=== PATIENT | female | born 1945 | race Caucasian/White ===

== ENCOUNTER → 2016-12-08 09:59 | Outpatient (CLI) | payer MEDICARE, OTHER ==
[~2016-12-08 09:59] MED LIST: ASPIRIN325 MG PO; AVAPRO150 MG PO; BAYER CHEWABLE81 MG PO; COREG 3.1253.125 MG PO; EFFEXOR75 MG PO; HYDRALAZINE HCL10 MG PO; LASIX20 MG; LASIX20 MG PO; LEVOTHROID88 MCG PO; LIBRAX CAPSULE1 CAP PO; MECLIZINE HCL25 MG PO; MUCINEX600 MG PO; PLAVIX75 MG PO; PRAVASTATIN SOD10 MG PO; PROAIR HFA8.5 GM INH; SYNTHROID75 MCG PO; TOPROL XL50 MG PO; VITAMIN D31000 UNIT PO; ZANTAC150 MG PO
== END | disposition home or self-care (01) ==
LOC: D.US 12-07 15:00
DX: I65.23 Occlusion and stenosis of bilateral carotid arteries (principal)

== ENCOUNTER → 2016-12-09 10:01 | Outpatient (CLI) | payer MEDICARE, OTHER | END | disposition home or self-care (01) | LOC: D.CT 10:01 | DX: I65.23 Occlusion and stenosis of bilateral carotid arteries (principal) ==

== ENCOUNTER 2016-12-25 10:34 | Outpatient (CLI) | payer MEDICARE, OTHER ==
[~2016-12-25] VITALS: Ht 170.2 cm; Wt 51.0 kg
--- NOTE | ~2016-12-25 | HEMODYNAMI ---
PATIENT:SANTHOSH NATARAJAN MEDICAL RECORD: [id number] : 41 LOCATION:[facility] ADMISSION DATE: 12/25/16 Generatedon:12/25/201615:23 Patient name: SANTHOSH NATARAJAN Patient #: [id number] SSN: D OB: 1945 Date of study: 12/25/2016 Page: Of Hemodynamic Procedure Report Patient Data Patient Demographics Procedure consent was obtained First Name: SANTHOSH Gender: Female Last Name: ROSA ISELA : 1945 [facility] Initial: B Age: 71 year(s) Patient #: [id number] Race: Unknown Additional ID: [id number] Contact details [address]: [address] [place] [address] State: [place] City: [place] Zip code: [address] Past Medical History Allergies Allergen Reaction Date Comments Reported Statins 06/07/2015 Morphine 06/07/2015 Penicillins 12/25/2016 Sulfa drugs 12/25/2016 Other allergy 12/25/2016 Zetia Admission Admission Data Admission Date: 12/25/2016 Admission Time: 10:34 Lab Results Lab Result Date: 12/25/2016 Lab Result Time: 0:00 Biochemistry Name Units Result Min Max Creatinine mg/dl 0.8 --(-*--)-- 0.6 1.3 CBC Name Units Result Min Max Hemoglobin g/dl 15.6 --(--*-)-- 13.5 17.5 Procedure Procedure Types Cath Procedure Diagnostic Procedure C [facility] w/Coronaries PCI Procedure Coronary Stent Initial x2 Miscellaneous Procedures Moderate Sedation up to 45 minutes Peripheral Cath Diagnostic Procedure Cath Peripheral Nmwri-Doklahl-Svd-Off Four Vessel Arteriogram Procedure Description Procedure Date Procedure Date: 12/25/2016 Procedure Start Time: 14:29 Procedure End Time: 15:19 Procedure Staff Name Function Juice Chaudhry MD Performing Physician Bhavik Sandoval RT Scrub Natalie Moncada RN Nurse Brooke Jj RT Monitor Procedure Data Cath Procedure Fluoroscopy Diagnostic fluoroscopy Total fluoroscopy Time: time: 17.6 min 17.6 min Diagnostic fluoroscopy Total fluoroscopy dose: dose: 1182 mGy 1182 mGy Contrast Material Contrast Material Type Amount (ml) Isovue 300 287 Entry Location Entry Primary Successful Side Size Upsize Upsize Entry Closure Succes sful Closure Location (Fr) 1 (Fr) 2 (Fr) Remarks Device Remarks Femoral Right 5 Fr 6 Fr Vascade artery Short Closure System Estimated blood loss: 10 ml Diagnostic catheters Device Type Used For End Catheter Placement Cordis 5Fr Pigtail LV Angiography Catheter (MP) Cordis 5Fr Pigtail Abdominal Catheter (MP) aortogram with runoff Cordis 5Fr JL 4.0 Left Coronary Catheter (MP) Angiography Cordis 5Fr 3DRC Catheter Right Coronary (MP) Angiography Cordis 5Fr 3DRC Catheter Cervical carotid (MP) (common) arteriography Cordis 4Fr JB3 catheter Cervical carotid (common) arteriography Procedure Complications No complications Procedure Medications Medication Administration Route Dosage Oxygen NC 2 l/min Lidocaine 2% added to field 20 Heparin Flush Bag added to field 2 bags (1000units/500ml NS) 0.9% NaCl I.V. 100 ml/hr Benadryl I.V. 25 mg Versed I.V. 0.5 mg Fentanyl I.V. 25 mcg Versed I.V. 1 mg Fentanyl I.V. 50 mcg Heparin Bolus I.V. 5000 units Versed I.V. 1 mg Fentanyl I.V. 50 mcg Heparin Flush Bag added to field 1 bags (1000units/500ml NS) Versed I.V. 0.5 mg Fentanyl I.V. 25 mcg Hemodynamics Rest HGB: 15.6 (g/dl) Heart Rate: 84 (bpm) Snapshots Pre Cath Intra NCS Post Cath Vital Signs Time Heart Resp SPO2 etCO2 DM6nrdn NIBP (mmHg) Rhythm Pain Sedatio n Rate (ipm) (%) (mmHg) (mmHg) Status Level (bpm) 14:08:17 90 17 97 0 0 Measuring NSR 0 (11) 10(A) , No pain 14:09:41 88 20 96 0 0 Time NSR 0 (11) 10(A) Exceeded , No pain 14:12:37 87 22 99 0 0 235/117(187) NSR 0 (11) 10(A) , No pain 14:17:14 86 18 96 0 0 215/102(154) NSR 0 (11) 10(A) , No pain 14:21:44 84 21 97 0 0 201/94(148) NSR 0 (11) 10(A) , No pain 14:26:12 85 17 96 0 0 183/86(123) NSR 0 (11) 9(A) , No pain 14:30:37 84 16 95 0 0 189/80(139) NSR 0 (11) 9(A) , No pain 14:35:05 84 16 98 0 0 168/72(111) NSR 0 (11) 9(A) , No pain 14:39:27 86 16 95 0 0 153/68(104) NSR 0 (11) 9(A) , No pain 14:43:43 84 28 95 0 0 154/70(106) NSR 0 (11) 9(A) , No pain 14:47:59 86 19 97 0 0 144/73(95) NSR 0 (11) 9(A) , No pain 14:52:13 84 15 97 0 0 162/65(115) NSR 0 (11) 9(A) , No pain 14:56:35 81 16 95 0 0 152/61(103) NSR 0 (11) 9(A) , No pain 15:00:53 81 16 96 0 0 134/60(93) NSR 0 (11) 9(A) , No pain 15:05:08 81 15 97 0 0 137/55(91) NSR 0 (11) 9(A) , No pain 15:09:21 83 15 96 0 0 143/60(95) NSR 0 (11) 9(A) , No pain 15:13:37 80 16 95 0 0 144/61(96) NSR 0 (11) 10(A) , No pain 15:17:56 77 17 96 0 0 121/56(82) NSR 0 (11) 10(A) , No pain Medications Time Medication Route Dose Verified Delivered Reason Notes Effectiveness by by 14:07:58 Oxygen NC 2 Juice Estrada used for l/min Isidoro Moncada garment worker 14:12:23 Lidocaine 2% added 20ml Juice Bose for local to vial Isidoro Chaudhry MD anesthetic field 14:12:27 Heparin Flush added 2 Juice Bose used for Bag to bags Isidoro Chaudhry MD procedure (1000units/500ml field NS) 14:12:37 0.9% NaCl I.V. 100 Juice Buffie Per physician ml/hr Isidoro Moncada RN 14:19:57 Benadryl I.V. 25 mg Juice Buffie used for pt has Isidoro Moncada RN procedure restless legs worse with benadryl 14:22:37 Versed I.V. 0.5 Juice Buffie for sedation mg Isidoro Moncada RN 14:22:43 Fentanyl I.V. 25 Juice Buffie for sedation mcg Isidoro Moncada RN 14:27:53 Versed I.V. 1 mg Juice Buffie for sedation Isidoro Moncada RN 14:27:58 Fentanyl I.V. 50 Juice Buffie for sedation mcg Isidoro Moncada RN 14:44:01 Heparin Bolus I.V. 5000 Juice Buffie for VERIFI ED units Isidoro Moncada RN anticoagulation WITH DR CHAUDHRY 14:56:30 Versed I.V. 1 mg Juice Buffie for sedation Isidoro Moncada RN 14:56:34 Fentanyl I.V. 50 Juice Buffie for sedation mcg Isidoro Moncada RN 15:00:29 Heparin Flush added 1 Juice Buffie used for Bag to bags Isidoro Moncada RN procedure (1000units/500ml field NS) 15:05:55 Versed I.V. 0.5 Juice Buffie for sedation mg Isidoro Moncada RN 15:06:00 Fentanyl I.V. 25 Juice Buffie for sedation mcg Isidoro Moncada RN Procedure Log Time Note 13:57:44 Bhavik Sandoval RT(R) sent for patient. Start room use. 13:57:45 Time tracking: Regular hours 13:57:48 Plan of Care:Hemodynamics will remain stable., Cardiac rhythm will remain stable., Comfort level will be maintained., Respiratory function will remain adequate., Patient/ family verbilizes understanding of procedure., Procedure tolerated without complication., Recovers from procedure without complications.. 14:03:27 Patient received from Pre/Post Procedure Room to CCL 1 Alert and oriented. Tansferred to table in Supine position. 14:03:28 Warm blankets applied, and jesus manuel hugger turned on for patient comfort. 14:03:28 Correct patient and procedure confirmed by team. 14:03:30 Signed procedure consent form obtained from patient. 14:03:30 ECG and BP/O2 sat monitors applied to patient. 14:03:32 Full Disclosure recording started 14:06:28 Vital chart was started 14:07:58 Oxygen 2 l/min NC was given by Natalie Moncada RN; used for procedure; 14:11:24 Rhythm: sinus rhythm 14:11:34 H&P Date Dictated: 12/23/2016 Within 30 days and on chart., H&P Addendum completed by physician on day of procedure. (MUST COMPLETE FOR ALL OUTPATIENTS). 14:11:35 Pre-procedure instructions explained to patient. 14:11:35 Pre-op teaching completed and patient verbalized understanding. 14:11:37 Family in waiting room. 14:11:38 Patient NPO since Midnight. 14:12:03 Patient allergic to Penicillins 14:12:20 Patient allergic to Sulfa drugs 14:12:23 Lidocaine 2% 20ml vial added to field was given by Juice Chaudhry MD; for local anesthetic; 14:12:27 Heparin Flush Bag (1000units/500ml NS) 2 bags added to field was given by Juice Chaudhry MD; used for procedure; 14:12:31 Patient allergic to Other allergyZetia 14:12:37 0.9% NaCl 100 ml/hr I.V. was given by Natalie Moncada RN; Per physician; 14:12:38 Is the patient allergic to Iodine/contrast media? No. 14:12:48 Is patient on blood thinner?Yes 14:12:50 ACC The patient was administered the following blood thiners within the last 24 hours: ACCPlavix 14:12:52 Patient diabetic? No. 14:12:55 Previous problem with sedation/anesthesia? No ? 14:12:56 Snore? Yes 14:12:57 Sleep apnea? No 14:12:58 Deviated septum? No 14:12:59 Opens mouth fully? Yes 14:12:59 Sticks out tongue? Yes 14:13:01 Airway obstruction? No ? 14:13:04 Dentures? Yes In 14:13:08 Pre procedure: right dorsailis pedis pulse 2+ Normal; easily identifiable; not easily obliterated 14:13:10 Pre procedure: left dorsailis pedis pulse 2+ Normal; easily identifiable; not easily obliterated 14:13:15 Patient pain scale 0/10 ?. 14:13:21 IV patent on arrival in right hand with 0.9% NaCl at [facility]. 14:13:43 Lab Result : Creatinine 0.8 mg/dl 14:13:43 Lab Result : Hemoglobin 15.6 g/dl 14:13:47 Lab results completed and on chart. 14:13:50 Bilateral groins area was prepped with chlora-prep and draped in sterile fashion 14:13:51 Alarms reviewed by R. N. 14:13:51 Sharps counted by scrub and verified by R.N. 14:13:55 Use device set Femoral Dx 14:13:56 Acist Syringe opened to sterile field. 14:13:57 Bag Decanter opened to sterile field. 14:13:57 Medline Cath Pack opened to sterile field. 14:13:57 Terumo 5Fr [place] Sheath opened to sterile field. 14:13:58 St Carlos 260cm J .035 wire opened to sterile field. 14:13:59 Acist Hand Control opened to sterile field. 14:13:59 Acist Manifold opened to sterile field. 14:14:00 Diagnostic Infinity 5Fr Multipack catheter opened to sterile field. 14:14:00 Tegaderm 4 x 4 opened to sterile field. 14:14:51 Baseline sample Acquired. 14:19:57 Benadryl 25 mg I.V. was given by Natalie Moncada RN; used for procedure; pt has restless legs worse with benadryl 14:22:09 Zero performed for pressure channel P1 14:22:20 Final Timeout: patient, procedure, and site verified with staff and physician. All members of the team are in agreement. 14:22:23 Right groin site verified by team. 14:22:26 Physical assessment completed. ASA score P 2 - A patient with mild systemic disease as per Juice Chaudhry MD. 14:22:29 Sedation plan: IV Moderate Sedation Versed, Fentanyl 14:22:37 Versed 0.5 mg I.V. was given by Natalie Moncada RN; for sedation; 14:22:43 Fentanyl 25 mcg I.V. was given by Natalie Moncada RN; for sedation; 14:27:53 Versed 1 mg I.V. was given by Natalie Moncada RN; for sedation; 14:27:58 Fentanyl 50 mcg I.V. was given by Natalie Moncada RN; for sedation; 14:29:38 Procedure started. 14:29:44 Local anesthetic to right femoral artery with Lidocaine 2% by Juice Chaudhry MD.INITIAL ACCESS ONLY 14:30:25 A 5 Fr sheath was inserted into the Right Femoral artery 14:30:55 A Cordis 5Fr Pigtail Catheter (MP) was advanced over the wire and used for LV Angiography. 14:31:12 LV gram done using SALCEDO 14:31:17 Injector settings: Ml/sec: 10, Volume: 20, 14:31:49 EF : 60 % 14:31:59 A Cordis 5Fr Pigtail Catheter (MP) was advanced over the wire and used for Abdominal aortogram with runoff. 14:33:04 Catheter removed. 14:34:55 A Cordis 5Fr JL 4.0 Catheter (MP) was advanced over the wire and used for Left Coronary Angiography. 14:34:56 Catheter removed. 14:35:11 A Cordis 5Fr 3DRC Catheter (MP) was advanced over the wire and used for Right Coronary Angiography. 14:37:04 A Cordis 5Fr 3DRC Catheter (MP) was advanced over the wire and used for Cervical carotid (common) arteriography.Left 14:38:30 Catheter removed. 14:40:55 A Cordis 4Fr JB3 catheter was advanced over the wire and used for Cervical carotid (common) arteriography.Right 14:40:58 Catheter removed. 14:41:27 Terumo 6Fr [place] Sheath opened to sterile field. 14:41:27 Kendrick Whisper J 300cm 0.014 guide wire opened to sterile field. 14:41:28 Mytonomy BasixCompak Inflation Kit opened to sterile field. 14:41:47 Sheath upsized to a 6 Fr Short. 14:43:36 Cordis 6FR XB 3.5 SH guide catheter opened to sterile field. 14:44:01 Heparin Bolus 5000 units I.V. was given by Natalie Moncada RN; for anticoagulation; VERIFIED WITH DR CHAUDHRY 14:45:03 6 Fr XB3.5 SH guide catheter was inserted over the wire 14:45:19 Guide Catheter removed. unable to cannulate vessel. 14:45:36 6 Fr EBU 3.0 SH guide catheter was inserted over the wire 14:45:45 Medtronic Launcher 6Fr EBU 3.0 SH guide catheter opened to sterile field. 14:45:56 Whisper wire advanced. 14:47:31 Inflation number: 1 A Euphora 3.0 x 20 Balloon was prepped and advanced across the LMCA, then inflated to 13 DAVIE for 0:04 (min:sec). 14:47:50 Balloon removed over the wire. 14:50:26 Inflation Number: 2 A Medtronic Resolute 3.0 X 18 stent was prepped and advanced across the LMCA. The stent was deployed at 13 DAVIE for 0:07 (min:sec). 14:51:41 Choice PT ES to Circ wire advanced. 14:55:14 Wire removed. unable to cross lesion. 14:55:27 Kendrick Fielder XT J 300cm 0.014 guide wire opened to sterile field. 14:56:30 Versed 1 mg I.V. was given by Natalie Moncada RN; for sedation; 14:56:34 Fentanyl 50 mcg I.V. was given by Natalie Moncada RN; for sedation; 14:57:32 Wire advanced across lesion. 14:58:18 Stent catheter was removed intact over wire. 14:59:13 Inflation number: 1 A Euphora 2.0 x 10 Balloon was prepped and advanced across the Prox CX, then inflated to 13 DAVIE for 0:06 (min:sec). 14:59:20 Inflation number: 2 The Euphora 2.0 x 10 Balloon was reinflated across the Prox CX, to 17 DAVIE for 0:04 (min:sec). 14:59:35 Inflation number: 3 The Euphora 2.0 x 10 Balloon was reinflated across the Prox CX, to 21 DAVIE for 0:10 (min:sec). 14:59:45 Balloon removed over the wire. 15:00:05 Procedure type changed to Cath procedure, Diagnostic procedure, LHC, LHC w/Coronaries, PCI procedure, Coronary Stent Initial x2, Miscellaneous Procedures, Moderate Sedation up to 45 minutes, Peripheral Cath Diagnostic Procedure, Cath Peripheral, Ctfou-Kiomhit-Rhc-Off, Four Vessel Arteriogram 15:00:29 Heparin Flush Bag (1000units/500ml NS) 1 bags added to field was given by Natalie Moncada RN; used for procedure; 15:01:08 The Medtronic Resolute 2.5 X 8 stent was advanced then removed because of failure to cross lesion 15:02:43 wire removed from LAD 15:05:19 Wire removed. unable to get back-up support 15:05:41 New Choice PT ES wire advanced. 15:05:50 Inflation number: 4 A Erin Sci Fisher 3.0 X 9 balloon was prepped and advanced across the Prox CX, then inflated to 15 DAVIE for 0:10 (min:sec). 15:05:55 Versed 0.5 mg I.V. was given by Natalie Moncada RN; for sedation; 15:05:57 Erin Sci Choice PT Extra Support J 300cm .014 gu opened to sterile field. 15:06:00 Fentanyl 25 mcg I.V. was given by Natalie Moncada RN; for sedation; 15:06:36 Inflation number: 5 The Erin Sci Fisher 3.0 X 9 balloon was reinflated across the Prox CX, to 13 DAVIE for 0:10 (min:sec). 15:06:48 Inflation number: 6 The Erin Sci Fisher 3.0 X 9 balloon was reinflated across the Prox CX, to 13 DAVIE for 0:06 (min:sec). 15:08:07 Balloon removed over the wire. 15:10:03 Inflation Number: 7 A Medtronic Resolute 2.75 X 8 stent was prepped and advanced across the Prox CX. The stent was deployed at 13 DAVIE for 0:05 (min:sec). 15:10:24 Stent catheter was removed intact over wire. 15:10:25 Wire removed. 15:10:26 Guide catheter removed. 15:10:37 Vascade 6/7 Fr Closure Device opened to sterile field. 15:10:45 Sheath removed intact; hemostasis achieved with Vascade Closure System to the Right Femoral artery. 15:10:47 Procedure ended.(Physican Out) 15:11:59 Fluoroscopy time 17.60 minutes. 15:12:03 Flurop Dose total: 1182 15:12:03 Fluoroscopy dose: 1182 mGy 15:12:06 Contrast amount:Isovue 300 287ml. 15:12:08 Sharps counted by scrub and verified by R.N. 15:12:10 Insertion/operative site no bleeding no hematoma. 15:12:13 Post-op/insertion site Right Femoral artery dressed using a 4 x 4 and Tegaderm. 15:12:16 Post right femoral artery:stable, clean and dry 15:12:17 Post Procedure Pulses reassessed and unchanged 15:12:21 Post-procedure physical assessment completed. ASA score P 2 - A patient with mild systemic disease as per Juice Chaudhry MD. 15:12:24 Post procedure rhythm: unchanged. 15:12:27 Estimated blood loss: 10 ml 15:12:28 Post procedure instruction explained to patient.Patient verbalizes understanding. 15:12:29 Patient needs reinforcement of post procedure teaching. 15:12:33 Procedure Complication : No complications 15:13:08 See physician's report for complete and final results. 15:16:09 Erin Sci Choice PT Extra Support J 300cm .014 gu opened to sterile field. 15:18:11 Procedure and supply charges have been captured, reviewed, submitted and are correct. 15:18:12 Vital chart was stopped 15:18:15 Report given to PCU. 15:19:21 Patient transfered to PCU with Bed. 15:19:23 Procedure ended. 15:19:23 Full Disclosure recording stopped 15:19:37 End room use (Document Last) Intervention Summary Intervention Notes Time ActionType Lesion and Equipment Action# Pressure Duration Attributes Used 14:47:31 Inflate LMCA Euphora 1 13 00:04 balloon 3.0 x 20 Balloon 14:50:26 Place stent LMCA Medtronic 2 13 00:07 Resolute 3.0 X 18 stent 14:59:13 Inflate Prox CX Euphora 1 13 00:07 balloon 2.0 x 10 Balloon 14:59:20 Reinflate Prox CX Euphora 2 17 00:04 balloon 2.0 x 10 Balloon 14:59:35 Reinflate Prox CX Euphora 3 21 00:10 balloon 2.0 x 10 Balloon 15:01:08 Discard Medtronic Stent Resolute 2.5 X 8 stent 15:05:50 Inflate Prox CX Erin 4 15 00:10 balloon Sci Fisher 3.0 X 9 balloon 15:06:36 Reinflate Prox CX Erin 5 13 00:10 balloon Sci Fisher 3.0 X 9 balloon 15:06:48 Reinflate Prox CX Erin 6 13 00:06 balloon Sci Fisher 3.0 X 9 balloon 15:10:03 Place stent Prox CX Medtronic 7 13 00:05 Resolute 2.75 X 8 stent Device Usage Item Name Manufacture Quantity Catalog Number Hospital Part Current Mini mal Lot# / Charge Number Stock Stock Serial# Code Acist Acist 1 [id number] 103518 [id number] [id number] 20 Syringe Medical Systems Inc Bag Microtek 1 2002S 213540 56939 506789 5 Decanter Medical Inc. Medline Cardinal 1 [id number] 217924 11431 979553 5 Cath Pack Health Terumo 5Fr Terumo 1 [id number] 076158 394869 264836 [address] Carlos 1 [id number] 110189 792664 166518 30 260cm J .035 wire Acist Hand Acist 1 31762 347067 931779 691540 5 Control Medical Systems Inc Acist Acist 1 63177 378157 484941 637795 5 Manifold Medical Systems Inc Diagnostic Cardinal 1 [id number] 759193 60711 294785 30 Infinity Health 5Fr Multipack catheter Tegaderm 4 3M 1 1626W 714401 301079 679559 5 x 4 Cordis 5Fr Cardinal 1 917935 5 Pigtail Health Catheter (MP) Cordis 5Fr Cardinal 1 484102 5 JL 4.0 Health Catheter (MP) Cordis 5Fr Cardinal 1 923870 5 3DRC Health Catheter (MP) Cordis 4Fr Cardinal 1 532-438 288511 507619 5 JB3 Health catheter Terumo 6Fr Terumo 1 [id number] 340375 398730 464036 40 [place] Sheath Kendrick Kendrick 1 [id number] 798390 054618 004475 5 Whisper J Vascular 300cm 0.014 guide wire Merit Merit 1 [id number] 291256 841233 016409 15 [facility] Medical Inflation Kit Cordis 6FR Cardinal 1 [id number] 998932 610031 884989 2 XB 3.5 SH Health guide catheter Medtronic Medtronic 1 [id number] 889091 53288 804739 0 Launcher 6Fr EBU 3.0 SH guide catheter Euphora 3.0 Medtronic 1 [id number] 428510 801570 877907 5 [id number] x 20 Balloon Medtronic Medtronic 1 [id number] 482263 853272 0 [id number] Resolute 3.0 X 18 stent Kendrick Kendrick 1 [id number] 164880 142539 415318 5 Fielder XT Vascular J 300cm 0.014 guide wire Euphora 2.0 Medtronic 1 [id number] 205138 941774 856144 5 [id number] x 10 Balloon Medtronic Medtronic 1 [id number] 019663 660257 8 [id number] Resolute 2.5 X 8 stent Erin Sci Erin 1 [id number] 106080 564942 766839 1 [id number] Fisher Scientific 3.0 X 9 balloon Erin Sci Erin 2 [id number] 898181 194580 475788 5 Choice PT Scientific Extra Support J 300cm .014 gu Medtronic Medtronic 1 [id number] 015245 318001 2 [id number] Resolute 2.75 X 8 stent Vascade 04/14 Cardiva 1 [id number] 176656 090234 161630 5 Fr Closure Medical, Device Inc. Signature Audit Boaz Stage Time Signature Unsigned Intra-Procedure 12/25/2016 Brooke 3:23:37 PM Counts RT(R) Signatures Monitor : Brooke Signature : Counts RT Date : Time : [address] [address]
[~2016-12-25 10:34] MED LIST changes: -BAYER CHEWABLE81 MG PO; -HYDRALAZINE HCL10 MG PO; -MECLIZINE HCL25 MG PO; -PRAVASTATIN SOD10 MG PO; -SYNTHROID75 MCG PO; -VITAMIN D31000 UNIT PO
[2016-12-25 12:08] VITALS: BMI 18.8
[2016-12-25] MEDS ORDERED: BAYER CHEWABLE81 MG PO (12:12)
[2016-12-25] MEDS ORDERED: AVAPRO150 MG PO (12:17)
[2016-12-25] MEDS ORDERED: PRAVASTATIN SOD10 MG PO (12:18)
[2016-12-25] MEDS ORDERED: HYDRALAZINE HCL10 MG PO (12:19)
[2016-12-25] MEDS ORDERED: MECLIZINE HCL25 MG PO (12:21)
[2016-12-25 12:33] LABS: BASOPHILS 0.9 % (0.0-2.0); EOSINOPHILS 1.3 % (0-7); HEMATOCRIT 47.2 % (36.0-48.0); HEMOGLOBIN 15.6 g/dL (12-16); IMMATURE GRANULOCYTES 0.2 % (0-5); LYMPHOCYTES 25.5 % (15-50); MCHC 33.1 g/dL (31.0-37.0); MCV 90.8 fL (80.0-100.0); MEAN PLATELET VOLUME 11.7 fL (7.4-10.4); MONOCYTES 8.2 % (2-11); NEUTROPHILS 63.9 % (40-80); PLATELET COUNT 163 10x3/uL (130-400); RDW 13.4 % (11.5-14.5); WBC 5.4 10x3/uL (4.8-10.8)
[2016-12-25 12:34] LABS: INR 1.05 (0.85-1.17); PROTIME 13.6 SECONDS (11.6-15.0)
[2016-12-25 12:35] LABS: ANION GAP 10.1 mmol/L (8-16); CALCIUM 10.3 mg/dL (8.5-10.1); CARBON DIOXIDE 32.1 mmol/L (21.0-32.0); CREATININE - SERUM 0.8 mg/dL (0.6-1.3); POTASSIUM - SERUM 4.2 mmol/L (3.5-5.1)
--- NOTE | 2016-12-25 16:00 | NUR ---
PT ARRIVED TO ROOM WITH FAMILY AT SIDE. VSS. BP HTN @170 SYSTOLIC BUT DAUGHTER STATES THATS HER BASELINE. DRSG TO R.GROIN CDI NO S/S OF BLEEDING OR HEMATOMA. PT IS TO LAY FLAT FOR 4 HOURS AND IS AWARE AND VERBALIZED UNDERSTANDING. PT IS HERE TO OBSERVATION AND CAN D/C AT 8AM TOMORROW. NS INFUSING VIA R.ARM PIV DRSG CDI AND SWAB CAPS IN USE. NO FURTHER NEEDS AT THIS TIME. CL IN REACH. WILL CPOC.
[2016-12-25 17:10] VITALS: BP 178/80; Ht 170.2 cm; Wt 51.0 kg
--- NOTE | 2016-12-25 18:22 | NUR ---
VSS. PERIPHERAL PULSES INTACT. R.GROIN DRSG CDI, NO S/S OF HEMATOMA OR BLEEDING NOTED. CL IN REACH. FAMILY AT BEDSIDE. WILL CPOC.
[2016-12-25 20:20] VITALS: BP 151/68
[2016-12-26 00:15] VITALS: BP 137/75
[2016-12-26 04:20] VITALS: BP 125/58
--- NOTE | 2016-12-26 08:17 | NUR ---
D/C PTS R.FA PIV WITH CATHETER TIP FULLY INTACT. DISCHARGE TEACHING PROVIDED AND PAPERS SIGNED AND IN THE CHART. BELONGINGS COLLECTED AND CALLING FOR A W/C TRANSPORTATION. NO FURTHER NEEDS. WILL CPOC.
--- NOTE | 2017-01-01 08:46 | DS ---
PATIENT:SANTHOSH HUMPHREY :[birth year] MEDICAL RECORD: [id number] DISCHARGE SUMMARY ADMISSION DATE: 12/25/16 DISCHARGE DATE: 12/26/16 DIAGNOSES: 1. Unstable angina. 2. Coronary artery disease. 3. Percutaneous transluminal coronary angioplasty stent left main and left circumflex this admission. 4. Peripheral vascular disease. 5. Claudication. 6. Subclavian disease. 7. Hypertension. 8. Hyperlipidemia. HOSPITAL COURSE: Mrs. Humphrey presents with anginal symptomatology, found to have a 90% stenosis of her left main as well as circumflex as well as the RCA. She underwent successful PTCA stent of the left circumflex, left main. She as well complains of claudication. She has significant disease of the iliac on the left as well as the SFA on the right, critical disease of the subclavian on the left as well as concomitant disease of the RCA. She was discharged home with the addition of aspirin and Plavix to her medical regimen. She will come back Wednesday and we will perform RCA as well as subclavian and then Wednesday in a staged fashion, perform left and right leg METAL MINER BLASTING stent. TRANSINT:[id number] Voice Confirmation ID: [id number] DOCUMENT ID: [id number] SID BOSWELL MD at 0846 CC: [id number] DICTATION DATE: 12/26/16 1000 MANAGER INTERNSHIP: 12/26/16 2143 DEP CLI 12/26/16 [place] [id number]
--- NOTE | 2017-01-01 08:46 | OP ---
PATIENT NAME: SANTHOSH NATARAJAN MEDICAL RECORD: [id number] :[birth year] LOCATION:D.CAT ADMISSION DATE: SURGEON: SID BOSWELL MD DATE OF OPERATION: 12/25/2016 PROCEDURES: 1. PTCA stent left main. 2. PTCA stent left circumflex. 3. Left heart catheterization. 4. Selective coronary angiography. 5. Left ventriculogram. INDICATION: Angina and coronary artery disease. PROCEDURE IN DETAIL: After informed consent was obtained and after a detailed explanation of the risks, benefits as well as alternative therapies, the patient elected to proceed with angiogram and angioplasty. The right femoral area was prepped and draped in normal sterile fashion. The right femoral artery was cannulated via modified Seldinger technique with placement of 6-Filipino sheath. All catheters exchanged through this sheath. FINDINGS: The left ventriculogram was performed in the standard 30-degree SALCEDO view reveals preserved cardiac wall motion, ejection fraction 55%. SELECTIVE CORONARY ANGIOGRAPHY: 1. Left main is 90% stenosis. 2. The left anterior descending has moderate irregularities. There is an 80% stenosis in the mid distal vessel, but the vessel is very small at this point. 3. Left circumflex has moderate irregularities, but no flow-limiting stenosis. The ostium has at least 50% stenosis. 4. The right coronary has previously placed stent. This is widely patent. The distal right coronary has 80% stenosis. PTCA STENT OF THE LEFT MAIN AND LEFT CIRCUMFLEX: The left main was addressed with a 3.0 x 18 mm Resolute stent. This caused more plaque shift into the circumflex was addressed with a 2.75 x 8 mm Resolute stent. Result was 0% residual stenosis. OVERALL IMPRESSION: Successful percutaneous transluminal coronary angioplasty stent of the left main and left circumflex going from 90% initial stenosis to 0% residual. PLAN: PTCA stent of the distal RCA in the near future. TRANSINT:[id number] Voice Confirmation ID: [id number] DOCUMENT ID: [id number] SID BOSWELL MD at 0846 CC: [id number] DICTATION DATE: 12/25/16 1521 PRESSER AND SHAPER KNITTED GOODS: 12/25/16 204 DEP CLI 12/26/16 [place] [address]
--- NOTE | 2017-01-01 08:46 | OP ---
PATIENT NAME: SANTHOSH NATARAJAN MEDICAL RECORD: [id number] :41 LOCATION:D.CAT ADMISSION DATE: SURGEON: SID BOSWELL MD DATE OF OPERATION: 12/25/2016 PROCEDURES: 1. Aortofemoral runoff. 2. Abdominal aortography. INDICATION: Claudication and peripheral vascular disease. PROCEDURE IN DETAIL: After informed consent was obtained and after detailed explanation of risks, benefits as well as alternative therapies, the patient elected to proceed with angiogram and aortofemoral runoff. The right femoral area was prepped and draped in normal sterile fashion. The right femoral artery was cannulated via modified Seldinger technique with placement of 6-Telugu sheath. All catheters exchanged through this sheath. FINDINGS: Abdominal aortography was performed. The catheter was pulled down for aortofemoral runoff. Abdominal aortography reveals no significant abdominal aortic disease. No dissection or aneurysm formation. RIGHT LEG: A. Iliac: The common iliac has previously placed stent. This is widely patent. The internal and external iliacs have mild irregularities, but no flow-limiting stenosis. B. Femoral system: The common and deep femoral are widely patent. The superficial femoral has a 90% stenosis proximally, otherwise only moderate irregularities. C. Popliteal and infrapopliteal vessels are patent giving 3-vessel runoff to the foot, although diffusely diseased. LEFT LEG: A. Iliac: The common iliac is widely patent. The external iliac has greater than 70% stenosis at the juncture of the common and external iliac. Internal iliac is moderately diffusely diseased. B. Femoral system: The common superficial and deep femoral have moderate irregularities, but no flow-limiting stenosis. No stenosis greater than 30%. C. Popliteal and infrapopliteal vessels were widely patent giving 3-vessel runoff to the foot, although diffusely diseased. OVERALL IMPRESSION: Significant disease of the left iliac as well as right superficial femoral artery, but also being amenable to transcatheter revascularization via left to right approach. TRANSINT:[id number] Voice Confirmation ID: [id number] DOCUMENT ID: [id number] OPERATIVE REPORT [id number] SANTHOSH NATARAJAN SID BOSWELL MD at 0846 CC: [id number] DICTATION DATE: 12/25/16 1518 SECURITY COORDINATOR: 12/25/16 2110 DEP CLI 12/26/16 [facility] [address] [place] [address]
--- NOTE | 2017-01-01 08:46 | OP ---
PATIENT NAME: SANTHOSH NATARAJAN MEDICAL RECORD: [id number] :41 LOCATION:D.CAT ADMISSION DATE: SURGEON: SID BOSWELL MD DATE OF OPERATION: 12/25/2016 PROCEDURE: Four-vessel carotid and vertebral angiography. INDICATIONS: Unsteady gait, carotid vascular disease, subclavian disease. PROCEDURE IN DETAIL: After informed consent was obtained and after detailed explanation of risks, benefits as well as alternative therapies, the patient elected to proceed with angiogram and 4-vessel angiography. The right femoral area had a preexisting sheath. All catheters exchanged through this sheath. FINDINGS: There was subselection of each subclavian as well as the left carotid. RIGHT SIDE: The subclavian at the ostium has moderate irregularities, but no flow-limiting stenosis. The common internal and external carotids have yssy-wj-tdftrueg irregularities, but no flow-limiting stenosis. No stenosis greater than 30%. Vertebral artery is overall devoid of disease. LEFT SYSTEM: The common internal and external carotids have xend-cl-peganays irregularities, no stenosis greater than 30%. The left subclavian has an 80+ percent stenosis limiting flow to the entire left arm and left vertebral. OVERALL IMPRESSION: An 80% stenosis of the left subclavian limiting flow to the left arm and left vertebral that is amenable to transcatheter revascularization. TRANSINT:[id number] Voice Confirmation ID: [id number] DOCUMENT ID: [id number] SID BOSWELL MD at 0846 CC: [id number] DICTATION DATE: 12/25/16 1518 HAND FOLDER: 12/25/161 DEP CLI 12/26/16 [place] [id number]
== END 2016-12-26 08:20 | disposition home or self-care (01) ==
LOC: D.CATH 10:34 → D.M2 15:37 → D.CATH 12-26 08:20
PROVIDERS: Internal Medicine Interventional Cardiology
DX: I25.119 Atherosclerotic heart disease of native coronary artery with unspecified angina pectoris (principal); I70.213 Atherosclerosis of native arteries of extremities with intermittent claudication, bilateral legs; I70.8 Atherosclerosis of other arteries
CPT/HCPCS: 93458; 36222; 36225; C9600 ×2

== ENCOUNTER 2016-12-29 07:25 | Inpatient (IN) | payer MEDICARE, OTHER ==
[2016-12-29] VITALS (15 sets, daily range): BP systolic 107–202; BP diastolic 40–85; BMI 19.0; BMI 19.9
[~2016-12-29] VITALS: Ht 170.2 cm; Wt 57.0 kg
--- NOTE | ~2016-12-29 | HEMODYNAMI ---
PATIENT:SANTHOSH NATARAJAN MEDICAL RECORD: [id number] : 41 LOCATION:[facility] ADMISSION DATE: 12/29/16 Generatedon:12/30/201610:28 Patient name: SANTHOSH NATARAJAN Patient #: [id number] SSN: D OB: 1945 Date of study: 12/30/2016 Page: Of Hemodynamic Procedure Report Patient Data Patient Demographics Procedure consent was obtained First Name: SANTHOSH Gender: Female Last Name: ROSA ISELA : 1945 [facility] Initial: B Age: 71 year(s) Patient #: [id number] Race: Unknown Additional ID: [id number] Contact details Address: [address] [place] [address] State: [place] City: [place] Zip code: [address] Past Medical History Allergies Allergen Reaction Date Comments Reported Statins 06/07/2015 Morphine 06/07/2015 Penicillins 12/25/2016 Sulfa drugs 12/25/2016 Other 12/25/2016 Zetia allergy Sulfa drugs 12/29/2016 Statins 12/29/2016 Morphine 12/29/2016 Penicillins 12/29/2016 Other 12/29/2016 ZETIA allergy Other 12/30/2016 sulfa,morphine,statins,PCN,exetimibe allergy Admission Admission Data Admission Date: 12/29/2016 Admission Time: 15:16 Room #: [id number] Lab Results Lab Result Date: 12/29/2016 Lab Result Time: 0:00 Biochemistry Name Units Result Min Max BUN mg/dl 14 --(--*-)-- 7 18 Creatinine mg/dl 0.8 --(-*--)-- 0.6 1.3 CBC Name Units Result Min Max Hemoglobin g/dl 15 --(-*--)-- 13.5 17.5 Procedure Procedure Types Cath Procedure Miscellaneous Procedures Moderate Sedation up to 30 minutes Peripheral Cath Diagnostic Procedure Peripheral vascular Intervention Angioplasty Angioplasty Fem/Pop Procedure Description Procedure Date Procedure Date: 12/30/2016 Procedure Start Time: 10:09 Procedure End Time: 10:28 Procedure Staff Name Function Juice Chaudhry MD Performing Physician Brooke Jj RT Scrub Natalie Moncada RN Nurse Gagan Key RT Monitor Procedure Data Cath Procedure Fluoroscopy Diagnostic fluoroscopy Total fluoroscopy Time: 3.9 time: 3.9 min min Diagnostic fluoroscopy Total fluoroscopy dose: 83 dose: 83 mGy mGy Contrast Material Contrast Material Type Amount (ml) Isovue 300 49 Entry Location Entry Primary Successful Side Size Upsize 1 Upsize Entry Closure Mccauley ccessful Closure Location (Fr) (Fr) 2 (Fr) Remarks Device Remarks Femoral Left 6 Fr 6 Fr 6 Fr Vascade artery Short Mid-Length Short Closure System Estimated blood loss: 10 ml Diagnostic catheters Device Type Used For End Catheter Placement Diagnostic 5Fr IMT Procedure Catheter Procedure Complications No complications Procedure Medications Medication Administration Route Dosage Oxygen NC 2 l/min Lidocaine 2% added to field 20 Heparin Flush Bag added to field 2 bags (1000units/500ml NS) 0.9% NaCl I.V. 100 ml/hr Versed I.V. 1 mg Fentanyl I.V. 50 mcg Heparin Bolus I.V. 4000 units Versed I.V. 1 mg Fentanyl I.V. 50 mcg Hemodynamics Rest HGB: 15 (g/dl) Heart Rate: 86 (bpm) Snapshots Pre Cath Intra NCS Post Cath Vital Signs Time Heart Resp SPO2 etCO2 QL3xlfo NIBP (mmHg) Rhythm Pain Sedation Rate (ipm) (%) (mmHg) (mmHg) Status Level (bpm) 9:55:56 86 17 100 0 0 187/81(141) NSR 0 (11) 10(A) , No pain 10:00:24 87 22 100 0 0 176/82(121) NSR 0 (11) 10(A) , No pain 10:04:47 91 20 100 0 0 191/88(135) NSR 0 (11) 10(A) , No pain 10:09:15 84 16 100 0 0 157/64(104) NSR 0 (11) 9(A) , No pain 10:13:45 82 18 97 0 0 139/40(81) NSR 0 (11) 9(A) , No pain 10:18:06 87 17 96 0 0 145/51(100) NSR 0 (11) 9(A) , No pain 10:22:26 97 19 99 0 0 152/60(90) NSR 0 (11) 10(A) , No pain 10:26:52 95 9 98 0 0 146/48(95) NSR 0 (11) 10(A) , No pain Medications Time Medication Route Dose Verified Delivered Reason Notes Effectiveness by by 10:04:32 Oxygen NC 2 Juice Buffie used for l/min Isidoro Moncada RN procedure 10:06:41 Lidocaine 2% added 20ml Juice Juice for local to vial Isidoro Chaudhry MD anesthetic field 10:06:47 Heparin Flush added 2 Juice Juice used for Bag to bags Isidoro Chaudhry MD procedure (1000units/500ml field NS) 10:07:09 0.9% NaCl I.V. 100 Juice Buffie Per physician ml/hr Isidoro Moncada RN 10:07:22 Versed I.V. 1 mg Juiceraciel Mercadoie for sedation Isidoro Moncada RN 10:07:29 Fentanyl I.V. 50 Juiceraciel Mercadoie for sedation mcg Isidoro Moncada RN 10:11:09 Heparin Bolus I.V. 4000 Juiceraciel Mercadoie for verifi ed units Isidoro Moncada RN anticoagulation with dr chaudhry 10:14:02 Fentanyl I.V. 50 Juice Buffie for sedation mcg Isidoro Moncada RN 10:14:54 Versed I.V. 1 mg Juice Mercadoie for sedation Isidoro Moncada RN Procedure Log Time Note 9:30:12 Informed consent obtained and on chart 9:31:14 H&P Date Dictated: 12/29/2016 Within 30 days and on chart.. 9:31:44 Natalie Moncada RN sent for patient. Start room use. 9:31:46 Time tracking: Regular hours 9:31:55 Plan of Care:Hemodynamics will remain stable., Cardiac rhythm will remain stable., Comfort level will be maintained., Respiratory function will remain adequate., Patient/ family verbilizes understanding of procedure., Procedure tolerated without complication., Recovers from procedure without complications.. 9:47:48 Patient received from ICU to CCL 1 Alert and oriented. Tansferred to table in Supine position. 9:47:49 Warm blankets applied, and jesus manuel hugger turned on for patient comfort. 9:47:50 Correct patient and procedure confirmed by team. 9:47:50 ECG and BP/O2 sat monitors applied to patient. 9:47:53 Pre-procedure instructions explained to patient. 9:47:54 Pre-op teaching completed and patient verbalized understanding. 9:47:57 Family in patients room. 9:47:58 Patient NPO since Midnight. 9:54:46 Vital chart was started 10:00:43 Baseline sample Acquired. 10:00:56 Rhythm: sinus rhythm 10:00:58 Full Disclosure recording started 10:01:31 Patient allergic to Other allergysulfa,morphine,statins,PCN,exetimibe 10:03:50 Is the patient allergic to Iodine/contrast media? No. 10:03:51 Is patient on blood thinner?Yes 10:03:53 ACC The patient was administered the following blood thiners within the last 24 hours: ACCPlavix 10:03:55 Patient diabetic? No. 10:03:59 Previous problem with sedation/anesthesia? No ? 10:04:00 Snore? Yes 10:04:01 Sleep apnea? No 10:04:07 Deviated septum? No 10:04:08 Opens mouth fully? Yes 10:04:09 Sticks out tongue? Yes 10:04:10 Airway obstruction? No ? 10:04:15 Dentures? Yes IN TIGHT 10:04:19 Pre procedure: left dorsailis pedis pulse 1+ Palpable, but thready & weak; easily obliterated 10:04:21 Patient pain scale 0/10 ?. 10:04:29 IV patent on arrival in right antecubital with 0.9% NaCl at KVO. 10:04:32 Oxygen 2 l/min NC was given by Natalie Moncada RN; used for procedure; 10:04:34 Lab results completed and on chart. 10:04:38 Left groin area was prepped with chlora-prep and draped in sterile fashion 10:04:39 Alarms reviewed by R. N. 10:04:39 Sharps counted by scrub and verified by R.N. 10:04:45 Tegaderm 4 x 4 opened to sterile field. 10:04:46 Acist Manifold opened to sterile field. 10:04:47 Acist Hand Control opened to sterile field. 10:04:48 Acist Syringe opened to sterile field. 10:04:49 Bag Decanter opened to sterile field. 10:04:50 Medline Cath Pack opened to sterile field. 10:04:51 St Carlos 260cm J .035 wire opened to sterile field. 10:05:05 Physician arrived 10:05:05 --------ALL STOP TIME OUT------ 10:05:06 Final Timeout: patient, procedure, and site verified with staff and physician. All members of the team are in agreement. 10:05:07 Left groin site verified by team. 10:05:10 Physical assessment completed. ASA score P 2 - A patient with mild systemic disease as per Juice Chaudhry MD. 10:05:14 Sedation plan: IV Moderate Sedation Versed, Fentanyl 10::41 Lidocaine 2% 20ml vial added to field was given by Juice Chaudhry MD; for local anesthetic; 10::47 Heparin Flush Bag (1000units/500ml NS) 2 bags added to field was given by Juice Chaudhry MD; used for procedure; 10:07:09 0.9% NaCl 100 ml/hr I.V. was given by Natalie Moncada RN; Per physician; 10:07:22 Versed 1 mg I.V. was given by Natalie Moncada RN; for sedation; 10:07:29 Fentanyl 50 mcg I.V. was given by Natalie Moncada RN; for sedation; 10:08:21 Zero performed for pressure channel P1 10:09:10 Zero performed for pressure channel P1 10:09:29 Cook [facility] FIRM 260CM glide wire opened to sterile field. 10:09:30 Terumo TORQUE DEVICE PLASTIC .038 opened to sterile field. 10:09:31 Terumo 6Fr Freeburn Destination Sheath opened to sterile field. 10:09:32 Terumo 6Fr Freeburn Sheath opened to sterile field. 10:09:32 Merit BasixCompak Inflation Kit opened to sterile field. 10:09:47 Procedure started. 10:09:49 Local anesthetic to left femerol artery with Lidocaine 2% by Juice Chaudhry MD.INITIAL ACCESS ONLY 10:10:00 A 6 Fr Short sheath was inserted into the Left Femoral artery 10:10:11 GLIDE wire advanced. 10:10:24 A Diagnostic 5Fr IMT Catheter was advanced over the wire and used for Procedure. 10:11:09 Heparin Bolus 4000 units I.V. was given by Natalie Moncada RN; for anticoagulation; verified with dr chaudhry 10:12:09 Catheter removed. 10:12:18 Sheath upsized to a 6 Fr Mid-Length. 10:12:32 sheath advanced around the horn. 10:14:02 Fentanyl 50 mcg I.V. was given by Natalie Moncada RN; for sedation; 10:14:54 Versed 1 mg I.V. was given by Natalie Moncada RN; for sedation; 10:15:24 glide wire advanced. 10:15:30 Inflation number: 1 A Cordis Powerflex Pro 6.0 X 20 X 135 balloon was prepped and advanced across the Proximal Superficial Femoral, Right, then inflated to 13 DAVIE for 0:10 (min:sec). 10:16:03 Balloon removed over the wire. 10:17:16 Cordis SMART 6 X 20 X 120 stent was deployed across Proximal Superficial Femoral, Right . 10:18:40 Stent catheter was removed intact over wire. 10:19:50 Wire removed. 10:20:00 Sheath upsized to a 6 Fr Short. 10:21:33 Vascade 6/7 Fr Closure Device opened to sterile field. 10:21:46 Sheath removed intact; hemostasis achieved with Vascade Closure System to the Left Femoral artery. 10:21:48 Procedure ended.(Physican Out) 10:25:18 Procedure type changed to Cath procedure, Miscellaneous Procedures, Moderate Sedation up to 30 minutes, Peripheral Cath Diagnostic Procedure, Peripheral vascular Intervention, Angioplasty, Angioplasty Fem/Pop 10:25:23 Fluoroscopy time 03.90 minutes. 10:25:27 Flurop Dose total: 83 10:25:27 Fluoroscopy dose: 83 mGy 10:25:48 Contrast amount:Isovue 300 49ml. 10:25:49 Sharps counted by scrub and verified by R.N. 10:25:51 Insertion/operative site no bleeding no hematoma. 10:25:55 Post-op/insertion site Left Femoral artery dressed using a 4 x 4 and Tegaderm. 10:25:59 Post left femerol artery:stable, soft, clean and dry 10:26:02 Post Procedure Pulses reassessed and unchanged 10:26:04 Post-procedure physical assessment completed. ASA score P 2 - A patient with mild systemic disease as per Juice Chaudhry MD. 10:26:08 Post procedure rhythm: unchanged. 10:26:10 Estimated blood loss: 10 ml 10:26:11 Post procedure instruction explained to patient.Patient verbalizes understanding. 10:26:12 Patient needs reinforcement of post procedure teaching. 10:27:47 Procedure and supply charges have been captured, reviewed, submitted and are correct. 10:27:50 Procedure Complication : No complications 10:27:52 Vital chart was stopped 10:27:52 See physician's report for complete and final results. 10:27:53 Report given to ICU. 10:27:56 Patient transfered to ICU with Stretcher. 10:28:02 Procedure ended. 10:28:02 Full Disclosure recording stopped 10:28:08 ACC-PCI Only Patient was given prescriptions, or instructed by Jucie Chaudhry MD to start/continue the following medications upon discharge: Plavix 10:28:30 End room use (Document Last) Intervention Summary Intervention Notes Time ActionType Lesion and Equipment Action# Pressure Duration Attributes Used 10:15:30 Inflate Proximal Cordis 1 13 00:10 balloon Superficial Powerflex Femoral, Pro 6.0 X Right 20 X 135 balloon 10:17:16 Deploy self Proximal Cordis 1 expanding Superficial SMART 6 X stent Femoral, 20 X 120 Right stent Device Usage Item Name Manufacture Quantity Catalog Number Hospital Part Current Minim al Lot# / Charge Number Stock Stock Serial# Code Tegaderm 4 1 [id number] 5 x 4 Acist Acist 1 54969 999142 090290 [id number] 5 Manifold [employer] Inc Acist Hand Acist 1 18748 491833 385437 538392 5 Control Medical Systems Inc Acist Acist 1 01117 283993 365555 550028 20 Syringe Medical Systems Inc Bag Microtek 1 2002S 375220 81344 858152 5 DecProject Insiders [employer] Inc. Medline Cardinal 1 [id number] 199609 74598 [address] [facility] Carlos 1 [id number] 644124 454608 437870 30 260cm J .035 wire Cook PartTec Medical 1 [id number] 735782 304192 5 ROADRUNNER FIRM 260CM glide wire Terumo [place] 1 TD01 102605 858100 062140 5 TORQUE Scientific DEVICE PLASTIC .038 Terumo 6Fr Terumo 1 [id number] 214437 57716 164682 5 Freeburn Destination Sheath Terumo 6Fr Terumo 1 [id number] 098495 520682 144650 40 Freeburn Sheath Merit Merit 1 [id number] 897982 537134 268337 15 CafeX [employer] Medical Inflation Kit Diagnostic [place] 1 [id number] 740918 611340 28635 5 5Fr IMT Scientific Catheter Cordis Cardinal 1 [id number] 714029 117308 842920 5 Powerflex Health Pro 6.0 X 20 X 135 balloon Cordis Cardinal 1 [id number] 0 [id number] SMART 6 X Health 20 X 120 stent Vascade 6/7 Cardiva 1 [id number] 966995 080976 993974 5 Fr Closure Medical, Device Inc. Signature Audit [place] Stage Time Signature Unsigned Intra-Procedure 12/30/2016 Gagan Key 10:28:51 AM RT(R) Signatures Monitor : Gagan Key RT Signature : Date : Time : [facility] [address] [place] [address]
--- NOTE | ~2016-12-29 | HEMODYNAMI ---
PATIENT:SANTHOSH NATARAJAN MEDICAL RECORD: [id number] : 41 LOCATION:[facility] ADMISSION DATE: 12/29/16 Generatedon:12/29/201610:03 Patient name: SANTHOSH NATARAJAN Patient #: [id number] SSN: D OB: 1945 Date of study: 12/29/2016 Page: Of Hemodynamic Procedure Report Patient Data Patient Demographics Procedure consent was obtained First Name: SANTHOSH Gender: Female Last Name: ROSA ISELA : 1945 [facility] Initial: B Age: 71 year(s) Patient #: [id number] Race: Unknown Additional ID: [id number] Contact details Address: [address] [place] [address] State: [place] City: [place] Zip code: [address] Past Medical History Allergies Allergen Reaction Date Comments Reported Statins 06/07/2015 Morphine 06/07/2015 Penicillins 12/25/2016 Sulfa drugs 12/25/2016 Other allergy 12/25/2016 Zetia Sulfa drugs 12/29/2016 Statins 12/29/2016 Morphine 12/29/2016 Penicillins 12/29/2016 Other allergy 12/29/2016 ZETIA Admission Admission Data Admission Date: 12/29/2016 Admission Time: 7:25 Lab Results Lab Result Date: 12/29/2016 Lab Result Time: 0:00 Biochemistry Name Units Result Min Max BUN mg/dl 14 --(--*-)-- 7 18 Creatinine mg/dl 0.8 --(-*--)-- 0.6 1.3 CBC Name Units Result Min Max Hemoglobin g/dl 15 --(-*--)-- 13.5 17.5 Procedure Procedure Types Cath Procedure PCI Procedure Coronary Stent Initial Miscellaneous Procedures Moderate Sedation up to 30 minutes Peripheral Cath Diagnostic Procedure Cath Peripheral Renal Arteriogram Peripheral vascular Intervention Stent Stent-Arterial Inititial Procedure Description Procedure Date Procedure Date: 12/29/2016 Procedure Start Time: 9:28 Procedure End Time: 9:58 Procedure Staff Name Function Juice Chaudhry MD Performing Physician Natalie Moncada RN Nurse Williams Lr RT Back Up Scan Coordinator Bhavik Sandoval RT Monitor Brooke Jj RT Scrub Procedure Data Cath Procedure Fluoroscopy Diagnostic fluoroscopy Total fluoroscopy Time: 9.4 time: 9.4 min min Diagnostic fluoroscopy Total fluoroscopy dose: 314 dose: 314 mGy mGy Contrast Material Contrast Material Type Amount (ml) Isovue 300 106 Entry Location Entry Primary Successful Side Size Upsize Upsize Entry Closure Succes sful Closure Location (Fr) 1 (Fr) 2 (Fr) Remarks Device Remarks Femoral Right 6 Fr 6 Fr 6 Fr Vascade artery Short Long Short Closure System Diagnostic catheters Device Type Used For End Catheter Placement Diagnostic Infinity 5Fr 3DRC catheter Procedure Complications No complications Procedure Medications Medication Administration Route Dosage Oxygen NC 2 l/min Lidocaine 2% added to field 20 Heparin Flush Bag added to field 2 bags (1000units/500ml NS) 0.9% NaCl I.V. 100 ml/hr Versed I.V. 1 mg Fentanyl I.V. 50 mcg Versed I.V. 1 mg Fentanyl I.V. 50 mcg Heparin Bolus I.V. 5000 units Hemodynamics Rest HGB: 15 (g/dl) Heart Rate: 79 (bpm) Snapshots Pre Cath Intra NCS Post Cath Vital Signs Time Heart Resp SPO2 etCO2 II4hmjm NIBP (mmHg) Rhythm Pain Sedation Rate (ipm) (%) (mmHg) (mmHg) Status Level (bpm) 9:06:27 74 16 100 0 0 207/83(128) NSR 0 (11) 10(A) , No pain 9:10:55 80 17 100 0 0 201/77(124) NSR 0 (11) 10(A) , No pain 9:15:22 76 15 99 0 0 185/72(107) NSR 0 (11) 10(A) , No pain 9:19:54 77 16 98 0 0 191/71(121) NSR 0 (11) 10(A) , No pain 9:24:18 81 16 98 0 0 180/68(107) NSR 0 (11) 10(A) , No pain 9:28:47 77 19 96 0 0 138/56(88) NSR 0 (11) 9(A) , No pain 9:33:05 82 19 95 0 0 140/58(94) NSR 0 (11) 9(A) , No pain 9:37:23 83 17 98 0 0 138/63(94) NSR 0 (11) 9(A) , No pain 9:41:41 84 15 97 0 0 146/56(105) NSR 0 (11) 9(A) , No pain 9:46:01 85 28 98 0 0 166/62(87) NSR 0 (11) 9(A) , No pain 9:50:23 84 18 98 0 0 158/61(88) NSR 0 (11) 9(A) , No pain 9:54:47 84 16 99 0 0 163/63(95) NSR 0 (11) 9(A) , No pain 9:59:12 85 16 100 0 0 175/70(104) NSR 0 (11) 10(A) , No pain Medications Time Medication Route Dose Verified Delivered Reason Notes Effectiveness by by 8:58:26 Oxygen NC 2 Jiuce Buffie used for l/min Isidoro Moncada RN procedure 8:58:41 Lidocaine 2% added 20ml Juice Juice used for to vial Isidoro Chaudhry MD procedure field 8:58:46 Heparin Flush added 2 Juice Juice used for Bag to bags Isidoro Chaudhry MD procedure (1000units/500ml field NS) 8:59:04 0.9% NaCl I.V. 100 Juice Buffie Per physician ml/hr Isidoro Moncada RN 9:25:10 Versed I.V. 1 mg Juice Buffie for sedation Isidoro Moncada RN 9:25:18 Fentanyl I.V. 50 Juice Buffie for sedation mcg Isidoro Moncada RN 9:30:43 Versed I.V. 1 mg Juice Buffie for sedation Isidoro Moncada RN 9:30:47 Fentanyl I.V. 50 Juice Buffie for sedation mcg Isidoro Moncada RN 9:32:55 Heparin Bolus I.V. 5000 Juice Buffie for verifie d units Isidoro Moncada RN anticoagulation with dr chaudhry Procedure Log Time Note 8:32:32 ACC Patient presents with Stable Angina CCS Anginal Class 2--Slight limitation of ordinary activity. 8:32:34 Diagnostic Cath status Elective 8:33:11 Time tracking: Regular hours 8:33:26 Plan of Care:Hemodynamics will remain stable., Cardiac rhythm will remain stable., Comfort level will be maintained., Respiratory function will remain adequate., Patient/ family verbilizes understanding of procedure., Procedure tolerated without complication., Recovers from procedure without complications.. 8:44:42 Natalie Moncada RN sent for patient. Start room use. 8:53:54 Patient received from Pre/Post Procedure Room to CCL 1 Alert and oriented. Tansferred to table in Supine position. 8:53:55 Warm blankets applied, and jesus manuel hugger turned on for patient comfort. 8:53:56 Correct patient and procedure confirmed by team. 8:53:57 Signed procedure consent form obtained from patient. 8:53:58 ECG and BP/O2 sat monitors applied to patient. 8:58:26 Oxygen 2 l/min NC was given by Natalie Moncada RN; used for procedure; 8:58:41 Lidocaine 2% 20ml vial added to field was given by Juice Chaudhry MD; used for procedure; 8:58:46 Heparin Flush Bag (1000units/500ml NS) 2 bags added to field was given by Juice Chaudhry MD; used for procedure; 8:59:04 0.9% NaCl 100 ml/hr I.V. was given by Natalie Moncada RN; Per physician; 8:59:09 Vital chart was started 9:02:50 Baseline sample Acquired. 9:02:54 Rhythm: sinus rhythm 9:02:55 Full Disclosure recording started 9:02:59 H&P Date Dictated: 12/29/2016 Within 30 days and on chart., H&P Addendum completed by physician on day of procedure. (MUST COMPLETE FOR ALL OUTPATIENTS). 9:02:59 Pre-procedure instructions explained to patient. 9:03:00 Pre-op teaching completed and patient verbalized understanding. 9:03:01 Family in waiting room. 9:03:03 Patient NPO since Midnight. 9:03:13 Patient allergic to Sulfa drugs 9:03:19 Patient allergic to Statins 9:03:24 Patient allergic to Morphine 9:03:30 Patient allergic to Penicillins 9:03:47 Patient allergic to Other allergyZETIA 9:03:49 Is the patient allergic to Iodine/contrast media? No. 9:03:52 Is patient on blood thinner?Yes 9:04:02 ACC The patient was administered the following blood thiners within the last 24 hours: ACCPlavix 9:04:05 Patient diabetic? No. 9:04:06 ----Pre-sedation anethsthesia assessment.---- 9:04:09 Previous problem with sedation/anesthesia? No ? 9:04:10 Snore? Yes 9:04:12 Sleep apnea? No 9:04:14 Deviated septum? No 9:04:15 Opens mouth fully? Yes 9:04:17 Sticks out tongue? Yes 9:04:20 Airway obstruction? No ? 9:04:31 Dentures? Yes IN TIGHT 9:04:35 Pre procedure: right dorsailis pedis pulse 1+ Palpable, but thready & weak; easily obliterated 9:04:39 Patient pain scale 0/10 ?. 9:04:58 IV patent on arrival in right wrist with 0.9% NaCl at 10ml/hr. 9::22 Lab Result : BUN 14 mg/dl 9:: Lab Result : Creatinine 0.8 mg/dl 9::22 Lab Result : Hemoglobin 15 g/dl 9:05:26 Lab results completed and on chart. 9:05:29 Right groin area was prepped with chlora-prep and draped in sterile fashion 9:05:32 Alarms reviewed by R. N. 9:05:32 Sharps counted by scrub and verified by R.N. 9:09:49 Zero performed for pressure channel P1 9:24:24 --------ALL STOP TIME OUT------ 9:24:24 Final Timeout: patient, procedure, and site verified with staff and physician. All members of the team are in agreement. 9:24: Right groin site verified by team. 9:24:31 Physical assessment completed. ASA score P 2 - A patient with mild systemic disease as per Juice Chaudhry MD. 9:24:36 Sedation plan: IV Moderate Sedation Versed, Fentanyl 9:25: Versed 1 mg I.V. was given by Natalie Moncada RN; for sedation; 9::18 Fentanyl 50 mcg I.V. was given by Natalie Moncada RN; for sedation; 9:27:34 Use device set Femoral PCI 9::35 Acist Syringe opened to sterile field. 9::36 Acist Hand Control opened to sterile field. 9:27:36 Bag Decanter opened to sterile field. 9:27:37 Medline Cath Pack opened to sterile field. 9:27:38 Terumo 6Fr Surprise Sheath opened to sterile field. 9:27:39 St Carlos 260cm J .035 wire opened to sterile field. 9:27:40 Merit BasixCompak Inflation Kit opened to sterile field. 9:27:40 Acist Manifold opened to sterile field. 9:27:41 Tegaderm 4 x 4 opened to sterile field. 9:27:46 Kendrick Whisper J 300cm 0.014 guide wire opened to sterile field. 9:27:49 Procedure started. 9:28:03 Local anesthetic to right femoral artery with Lidocaine 2% by Juice Chaudhry MD.INITIAL ACCESS ONLY 9:28:13 A 6 Fr Short sheath was inserted into the Right Femoral artery 9:29:28 A Diagnostic Infinity 5Fr 3DRC catheter was advanced over the wire and used for .RENALS 9:29:39 Left renal angiography performed. 9::40 Right renal angiography performed. 9:29:52 Catheter removed. 9:30:43 Versed 1 mg I.V. was given by Natalie Moncada RN; for sedation; 9:30:45 6 Fr AR 2 guide catheter was inserted over the wire 9:30:47 Fentanyl 50 mcg I.V. was given by Natalie Moncada RN; for sedation; 9:31:33 Guide catheter removed. 9:31:45 Medtronic Launcher 6Fr AR 2.0 guide catheter opened to sterile field. 9:31:55 Medtronic Launcher 6Fr HS I guide catheter opened to sterile field. 9:32:04 6 Fr HS 1 guide catheter was inserted over the wire 9:32:55 Heparin Bolus 5000 units I.V. was given by Natalie Moncada RN; for anticoagulation; verified with dr chaudhry 9:33:29 WHISPER wire advanced. 9:33:45 ACC PCI Site: dRCA has 90% stenosis. 9:33:49 ACC Pre-intervention REBECA Flow is 3. 9:35:52 Inflation Number: 1 A Medtronic Resolute 2.25 X 14 stent was prepped and advanced across the Dist RCA. The stent was deployed at 11 DAVIE for 0:10 (min:sec). 9:35:57 ACC Post-intervention REBECA Flow is 3. 9:35:58 Stent catheter was removed intact over wire. 9:35:59 Wire removed. 9:35:59 Guide catheter removed. 9:36:26 Cordis 6Fr 90cm Brite tip sheath opened to sterile field. 9:37:10 CARDIAC SITE: LEFT SUBCLAVIAN 9:37:25 5 Fr 3DRC guide catheter was inserted over the wire 9:39:00 Terumo ANGLED SS 260CM glide wire opened to sterile field. 9:39:05 GLIDE wire advanced. 9:39:40 Terumo TORQUE DEVICE PLASTIC .038 opened to sterile field. 9:40:42 Guide catheter removed. 9:40:50 Sheath upsized to a 6 Fr Long. 9:45:01 Inflation number: 1 A Cordis Powerflex Pro 6.0 X 20 X 135 balloon was prepped and advanced across the Proximal Subclavian, Left, then inflated to 7 DAVIE for 0:10 (min:sec). 9:45:14 Inflation number: 2 The Cordis Powerflex Pro 6.0 X 20 X 135 balloon was reinflated across the Proximal Subclavian, Left, to 7 DAVIE for 0:12 (min:sec). 9:45:18 Balloon removed over the wire. 9:45:41 Procedure type changed to Cath procedure, PCI procedure, Coronary Stent Initial, Miscellaneous Procedures, Moderate Sedation up to 30 minutes, Peripheral Cath Diagnostic Procedure, Cath Peripheral, Renal Arteriogram, Peripheral vascular Intervention, Stent, Stent-Arterial Inititial 9:51:03 Inflation Number: 3 A Cordis Karen 6 x 29 x 135 stent was prepped and advanced across the Proximal Subclavian, Left. The stent was deployed at 11 DAVIE for 0:11 (min:sec). 9:51:53 Stent catheter was removed intact over wire. 9:51:54 Wire removed. 9:52:00 Sheath upsized to a 6 Fr Short. 9:53:15 Sheath removed intact; hemostasis achieved with Vascade Closure System to the Right Femoral artery. 9:53:31 Vascade 6/7 Fr Closure Device opened to sterile field. 9:53:32 Terumo 6Fr Surprise Sheath opened to sterile field. 9:53:38 Contrast amount:Isovue 300 106ml. 9:53:40 Procedure ended.(Physican Out) 9:53:52 Fluoroscopy time 09.40 minutes. 9:53:56 Fluoroscopy dose: 314 mGy 9:53:56 Flurop Dose total: 314 9:54:21 Sharps counted by scrub and verified by R.N. 9:54:21 Insertion/operative site no bleeding no hematoma. 9:54:24 Post-op/insertion site Right Femoral artery dressed using a 4 x 4 and Tegaderm. 9:54:27 Post right femoral artery:stable 9:54:28 Post Procedure Pulses reassessed and unchanged 9:54:30 Post procedure: right dorsailis pedis pulse 1+ Palpable, but thready & weak; easily obliterated. 9:54:33 Post procedure rhythm: sinus rhythm 9:54:35 Post procedure instruction explained to patient.Patient verbalizes understanding. 9:57:24 Procedure and supply charges have been captured, reviewed, submitted and are correct. 9:58:18 Procedure Complication : No complications 9:58:41 Vital chart was stopped 9:58:42 See physician's report for complete and final results. 9:58:47 Report given to PCU. 9:58:51 Patient transfered to PCU with Bed. 9:58:53 Procedure ended. 9:58:53 Full Disclosure recording stopped 9:59:00 End room use (Document Last) Intervention Summary Intervention Notes Time ActionType Lesion and Equipment Action# Pressure Duration Attributes Used 9:35:52 Place stent Dist RCA Medtronic 1 11 00:10 Resolute 2.25 X 14 stent 9:45:01 Inflate Proximal Cordis 1 7 00:10 balloon Subclavian, Powerflex Left Pro 6.0 X 20 X 135 balloon 9:45:14 Reinflate Proximal Cordis 2 7 00:12 balloon Subclavian, Powerflex Left Pro 6.0 X 20 X 135 balloon 9:51:03 [address] stent Proximal Cordis 3 11 00:11 Subclavian, Karen 6 Left x 29 x 135 stent Device Usage Item Name Manufacture Quantity Catalog Hospital Part Current Minima l Lot# / Number Charge Number Stock Stock Serial# Code Acist Acist 1 46791 562505 887409 143252 20 Syringe Medical Systems Inc Acist Hand Acist 1 52808 814881 881476 562701 5 InstaEDU Inc Bag Microtek 1 2001S 564053 84726 183611 5 Spavista Inc. Medline Cardinal 1 [id number] 632111 37064 225908 5 Cath Pack Health Terumo 6Fr Terumo 2 [id number] 627876 004528 360125 [address] [facility] Carlos 1 412287 432942 714099 522507 30 260cm J .035 wire [facility] 1 [id number] 385113 850249 593034 15 RxAnte Medical Inflation Kit Acist Acist 1 26965 943572 536774 657770 5 Skinfix Systems Inc Tegaderm 4 3M 1 1626W 852296 205201 346748 5 x 4 Kendrick Kendrick 1 [id number] 056261 944898 329549 5 Whisper J Vascular 300cm 0.014 guide wire Diagnostic Cardinal 1 [id number] 505698 363654 119320 9 3DLT.comity Health 5Fr 3DRC catheter Medtronic Medtronic 1 [id number] 508497 03098 281579 1 Launcher 6Fr AR 2.0 guide catheter Medtronic Medtronic 1 [id number] 376149 46630 372375 1 Launcher 6Fr HS I guide catheter Medtronic Medtronic 1 [id number] 442329 203529 5 [id number] Resolute 2.25 X 14 stent Cordis 6Fr Cardinal 1 [id number] 759050 735596 016028 5 90cm Brite Health tip sheath Terumo Terumo 1 FK0719 244593 067190 720063 5 ANGLED SS 260CM glide wire Terumo [place] 1 TD01 810823 428036 436838 5 TORQUE Scientific DEVICE PLASTIC .038 Cordis Cardinal 1 [id number] 633667 343056 091711 5 Powerflex Health Pro 6.0 X 20 X 135 balloon Cordis Cardinal 1 [id number] 415720 334804 5 Karen 6 x Health 29 x 135 stent Vascade 6/7 Cardiva 1 [id number] 579344 456477 769727 5 Fr Closure Medical, Device Inc. Signature Audit [place] Stage Time Signature Unsigned Intra-Procedure 12/29/2016 Bhavik Sandoval 10:02:59 AM RT(R) Signatures Monitor : Bhavik Sandoval RT Signature : Date : Time : [address] [place] [address]
[~2016-12-29 07:25] MED LIST changes: +BAYER CHEWABLE81 MG PO; +HYDRALAZINE HCL10 MG PO; +MECLIZINE HCL25 MG PO; +PRAVASTATIN SOD10 MG PO
[2016-12-29] MEDS ORDERED: VITAMIN D31000 UNIT PO (07:57)
[2016-12-29 08:17] LABS: BASOPHILS 0.6 % (0.0-2.0); EOSINOPHILS 1.9 % (0-7); HEMATOCRIT 45.2 % (36.0-48.0); MCH 30.1 pg (26.0-34.0); MCHC 33.2 g/dL (31.0-37.0); MCV 90.8 fL (80.0-100.0); MEAN PLATELET VOLUME 11.9 fL (7.4-10.4); MONOCYTES 11.4 % (2-11); NEUTROPHILS 61.1 % (40-80); PLATELET COUNT 138 10x3/uL (130-400); RBC 4.98 10x6/uL (4.00-5.40); RDW 13.2 % (11.5-14.5); WBC 5.3 10x3/uL (4.8-10.8)
[2016-12-29 08:33] LABS: ANION GAP 6.6 mmol/L (8-16); CALCIUM 10.1 mg/dL (8.5-10.1); CARBON DIOXIDE 35.3 mmol/L (21.0-32.0); CREATININE - SERUM 0.8 mg/dL (0.6-1.3); POTASSIUM - SERUM 3.9 mmol/L (3.5-5.1)
--- NOTE | 2016-12-29 10:30 | NUR ---
REC'D PT FROM GERIATRIC PHYSICAL THERAPIST. PT AAOX4. RIGHT WRIST PIV WITH NS INFUSING. DRESSING CDI, NO REDNESS OR SIGNS OF INFILTRATION. RIGHT EYE BRUISING, LEFT KNEE REDNESS. PT 02 SAT 66%, 4L NC APPLIED. BREATH SOUNDS CLEAR, BOWEL SOUNDS ACTIVE X4. NO C/O PAIN. VSS. ROOM FREE OF CLUTTER, CALL LIGHT IN REACH. SHIFT ASSESSMENT COMPLETED, SEE FLOW SHEET. WILL CONTINUE TO MONITOR PT .
--- NOTE | 2016-12-29 10:40 | NUR ---
PT FAMILY AT THE BEDSIDE, ALL QUESTIONS ANSWERED. PT'S NIECE, MRS. MCCONNELL AT STATED PT "JUST HAD A STENT LAST WEEK, SHE WENT HOME, HAD SOME PULMONARY EDEMA, GAVE HER SOME LASIX, IT HELPED HER ALOT. SHE USUALLY WILL HAVE SOME PULMONARY EDEMA AFTER A PROCEDURE." INFORMED HER I WOULD LET DR. BOSWELL KNOW. NO FURTHER QUESTIONS OR CONCERNS.
--- NOTE | 2016-12-29 11:52 | NUR ---
DR. BOSWELL AT THE BEDSIDE, ALL QUESTIONS ANSWERED, VSS, WILL CONTINUE TO MONITOR PT.
--- NOTE | 2016-12-29 15:00 | NUR ---
PT FAMILY AT THE BEDSIDE, ALL QUESTION ANSWERED. REASSESSMENT COMPLETED, SEE FLOW SHEET. ROOM FREE OF CLUTTER, CALL LIGHT IN REACH, WILL CONTINUE TO MONITOR PT.
--- NOTE | 2016-12-29 17:14 | NUR ---
PT SITTING UP IN BED EATING SUPPER, NO C/O PAIN, VSS. WILL CONTINUE TO MONITOR PT.
--- NOTE | 2016-12-29 19:35 | NUR ---
REC'D TO CARE, SEE ELECTRONIC WARFARE OPERATOR. PT AWAKENS EASILY, VSS. DENIES PAIN OR NEEDS. R GROIN DSG C/D/I, NO SWELLING OR DRAINAGE. PT INSTRUCTED ON FALL PRECAUTIONS AND TO CALL PRIOR TO OOB. ALARMS ON AND C/L IN REACH.
--- NOTE | 2016-12-29 21:11 | NUR ---
NO VISITORS AT THIS TIME. PT RESTING WITH EYES CLOSED. VSS.
--- NOTE | 2016-12-29 23:07 | NUR ---
REASSESSMENT PER FLOWSHEET, PT AWAKENS EASILY, DENIES PAIN OR NEEDS. VSS.C/L IN REACH.
[2016-12-30] VITALS (15 sets, daily range): BP systolic 112–178; BP diastolic 49–75; Ht 170.2 cm; Wt 57.0 kg
--- NOTE | 2016-12-30 | NUR ---
PT NOW NPO AND VERBALIZES UNDERSTANDING.
--- NOTE | 2016-12-30 01:00 | NUR ---
PT LYING L SIDE, TURNS SELF. VSS. NO SIGN OF DISTRESS.
--- NOTE | 2016-12-30 03:26 | NUR ---
REASSESSMENT PER FLOWSHEET, NO ACUTE CHANGES. PT AWAKENS EASILY, DENIES NEEDS. VSS. C/L IN REACH.
--- NOTE | 2016-12-30 07:15 | NUR ---
ASSISTED PT TO RESTROOM, VOIDED 300ML DARK URINE. SISTER AT BEDSIDE WITH PT'S MEDS, REVIEWED AND UPDATED IN SYSTEM.
[2016-12-30] MEDS ORDERED: SYNTHROID75 MCG PO (07:26)
--- NOTE | 2016-12-30 07:30 | NUR ---
SHIFT ASSESSMENT VIA FLOWSHEET, SEE FOR DETAILS. VSS, SR ON CM.
--- NOTE | 2016-12-30 08:34 | NUR ---
Patient Name: SANTHOSH NATARAJAN Admission Status: Elective Accout number: [id number] Admission Date: 12-29-2016 : 1945 Admission Diagnosis: Attending: JACY Current LOS: 1 Anticipated DC Date: 12-31-2016 Planned Disposition: Home Primary Insurance: MEDICARE A & B Is the patient Alert and Oriented? Yes * How many steps to enter\exit or inside your home? FOUR--WITH RAILING * PCP DR VERDE * Pharmacy [facility] IN [place] * Preadmission Environment Home with Family * ADLs Independent * Equipment Oxygen * Other Equipment PT HAS HOME AND PORTABLE OXYGEN, BUT COULD NOT REMEMBER DME PROVIDER COMPANY NAME * List name and contact numbers for known caregivers / representatives who currently or will assist patient after discharge: ELVIS RUIZ, * Community resources currently utilized None * Please name any agencies selected above. PT HAS USED HH SERVICES IN THE PAST--[facility]INKS [facility]ENCY [facility]) * Additional services required to return to the preadmission environment? No * Can the patient safely return to the preadmission environment? Yes * Has this patient been hospitalized within the prior 30 days at any hospital? No Discharge Planning Comments: CM MET WITH PATIENT TO ASSESS DC PLAN/NEEDS. PT STATED SHE LIVES AT HOME WITH FAMILY AND IS INDEPENDENT IN HER CARE/ADL'S. STATED SHE HAS FOUR STEPS INTO HER HOME, BUT STEPS HAVE A RAIL AND SHE IS HAVING NO TROUBLE MANAGING THOSE STEPS. SHE STATED HER FAMILY ASSISTS HER IF NEEDED AND THAT HER NIECE WILL DRIVE HER HOME AT DISCHARGE. SHE STATED THAT SHE HAS USED HH SERVICES IN THE PAST, BUT DENIED NEED FOR ANY HH OR REHAB SERVICES AT DISCHARGE. PT REPORTS HAVING ALL NEEDED DME AND VOICED NO NEED FOR ADDITIONAL DME AT DC. SHE STATED HER HOME IS A SAFE PLACE AND PLANS TO RETURN HOME WITH HER FAMILY. PATIENT VOICED NO DC NEEDS AT THIS TIME. CM WILL FOLLOW AND ASSIST WITH ANY DC NEEDS THEY ARISE. DC IMM SIGNED BY PATIENT AND PLACED IN CHART. Wood Heel Flap Rubber: Selena Jain RN, CM
--- NOTE | 2016-12-30 09:29 | NUR ---
PRE OP MEDS GIVEN PER ORDER.
--- NOTE | 2016-12-30 09:45 | NUR ---
PT TO SMALL ENGINE TECHNICIAN VIA BED.
--- NOTE | 2016-12-30 10:34 | NUR ---
REPORT RECEIVED FROM KEYLA HOFFMAN RN.
--- NOTE | 2016-12-30 10:40 | NUR ---
RECIEVED PT TO ROOM CV05 VIA BED. MONITORS CONNECTED. LEFT GROIN SITE SOFT, WITHOUT SIGNS OF BLEEDING, BRUISING OR HEMATOMA. PEDAL PULSES PALPABLE.
--- NOTE | 2016-12-30 11:30 | NUR ---
REASSESSMENT VIA FLOWSHEET, SEE FOR DETAILS. VSS, SR ON CM. LEFT GROIN INCISION WITHOUT SIGNS OF BLEEDING, BRUISING, OR SWELLING. PEDAL PULSES PALPABLE.
--- NOTE | 2016-12-30 12:30 | NUR ---
FAMILY AT BEDSIDE, LUNCH TRAY PROVIDED. PT AAOX4, VSS. LEFT GROIN INCISION WNL.
--- NOTE | 2016-12-30 14:35 | NUR ---
PT DISCHARGE TEACHING PROVIDED, PT VERBALIZES UNDERSTANDING OF INSTRUCTIONS AND PAPERWORK SIGNED. PIV D/C'D. AWAITING PT TO VOID, THEN WILL CONTINUE WITH DISCHARGE.
--- NOTE | 2016-12-30 14:45 | NUR ---
PT VOIDED 200ML URINE.
--- NOTE | 2016-12-30 14:53 | NUR ---
PT TO FRONT ENTRANCE VIA WHEELCHAIR.
--- NOTE | 2017-01-01 08:47 | HP ---
PATIENT: SANTHOSH HUMPHREY MEDICAL RECORD: [id number] ACCOUNT: [id number] LOCATION[facility] MadhuriCV05 : 41 ADMISSION DATE: 12/29/16 HISTORY AND PHYSICAL EXAMINATION DIAGNOSES: 1. Claudication. 2. Peripheral vascular disease. 3. Left arm claudication. 4. Subclavian disease. 5. Angina. 6. Coronary artery disease. 7. Hypertension. 8. Hyperlipidemia. HISTORY OF PRESENT ILLNESS: Mrs. Humphrey presents with claudication symptomatology as well left arm claudication as well with anginal symptomatology. She has known disease of the coronary RCA, known disease of the left subclavian, known disease of both legs. She is now brought back for transcatheter revascularization of these territories in a staged fashion. PHYSICAL EXAMINATION: GENERAL APPEARANCE: Well-nourished, well-developed, appears stated age. Level of distress, comfortable. PSYCHIATRIC: Mental status, alert, normal affect. Orientation, oriented to time, place and person. EYES: Lids and conjunctiva, noninjected. No discharge, no pallor. ENT: Lips, teeth, gums, normal dentition. Oropharynx, no cyanosis, no pallor. NECK: Carotid arteries, bilateral normal upstroke, no bruits, no thrills. JUGULAR VEINS: No jugular venous pressure or distention. CERVICAL LYMPH NODES: Nontender, nonenlarged. THYROID: Not enlarged. Nontender. No nodules. LUNGS: Respiratory effort, unlabored. CHEST: Normal curvature. No thoracic deformity. No chest wall tenderness. Percussion, resonant. Auscultation, clear. No wheezes, no rales, no rhonchi. CARDIOVASCULAR: Precordial exam, nondisplaced. No heaves or pericardial thrills. Rate and rhythm, regular. Heart sounds, normal S1, normal S2. No S3, no gallop, no rub. Systolic murmur, not heard. Diastolic murmur, not heard. EXTREMITIES: No cyanosis, no edema. Peripheral pulses, full and equal in all extremities, except as noted. No bruits appreciated. ABDOMEN: Soft, nondistended. Normal aorta. No bruit. Nontender. No masses. Liver, nontender, no hepatomegaly. Spleen, nontender, no splenomegaly. MUSCULOSKELETAL: No joint tenderness. No joint swelling. No erythema. NEUROLOGICAL: Normal gait, normal strength, normal tone. SKIN: Warm and dry. REVIEW OF SYSTEMS: The patient reports easy bruising but reports no swollen glands. The patient reports no fever, no night sweats, no significant weight gain, no significant weight loss. No significant exercise tolerance. The patient reports no dry eyes, no irritation, no vision change. Patient reports no difficulty hearing and no ear pain. Patient reports no frequent nose bleeds or nose and sinus problems. Patient reports on arm pain on exertion. No shortness of breath while lying down. No history of heart murmur. Patient reports no cough, no wheezing or coughing up blood. Patient reports no abdominal pain, no vomiting. Normal appetite. No diarrhea and not vomiting HISTORY AND PHYSICAL [id number] HUMPHREYSANTHOSH WEINER blood. No nausea and no constipation. Patient reports no incontinence. No difficulty urinating. No hematuria. No increased frequency. Patient reports no muscle aches. No weakness, no arthralgias, no back pain. No swelling of the extremities. Patient reports no abnormal mole, no jaundice, no rashes. Reports no loss of consciousness. No weakness and no numbness. No seizures, dizziness, or headaches. The patient reports no depression, no sleep disturbance, feeling safe in a relationship and no alcohol abuse. Patient reports on fatigue. Reports no runny nose or sinus pressure. No itching, no hives, and no frequent sneezing. OVERALL IMPRESSION: Anginal symptomatology, claudication symptomatology. All disease is amenable to transcatheter revascularization. We will proceed with transcatheter revascularization of these territories. TRANSINT:[id number] Voice Confirmation ID: [id number] DOCUMENT ID: [id number] SID BOSWELL MD at 0847 CC: [id number] DICTATION DATE: 12/29/16 1037 POWDER MONKEY: 12/29/16 1142 DIS IN 12/30/16 [facility] [address] [place] [address]
--- NOTE | 2017-01-01 08:47 | DS ---
PATIENT:SANTHSOH HUMPHREY :41 MEDICAL RECORD: [id number] DISCHARGE SUMMARY ADMISSION DATE: 12/29/16 DISCHARGE DATE: 12/30/16 Addendum Ms. Humphrey has always had groin problems after intervention. We had planned for her to stay overnight due to this; however, the patient requested going home. Her groin was stable at the time of discharge. They will return immediately if they have any groin bleeding issues. TRANSINT:[id number] Voice Confirmation ID: [id number] DOCUMENT ID: [id number] SID BOSWELL MD at 0847 CC: [id number] DICTATION DATE: 12/30/16 1029 SENIOR EDUCATION SPECIALIST: 12/31/16 0006 DIS IN 12/30/16 [place] [id number] [place] [address]
--- NOTE | 2017-01-01 08:47 | DS ---
PATIENT:SANTHOSH HUMPHREY :41 MEDICAL RECORD: [id number] DISCHARGE SUMMARY ADMISSION DATE: 12/29/16 DISCHARGE DATE: 12/30/16 DIAGNOSES: 1. PTCA stent, right coronary artery this admission. 2. CASING WORKER stent, left subclavian this admission. 3. CASING WORKER stent, right SFA this admission. 4. Angina. 5. Coronary artery disease. 6. Peripheral vascular disease. 7. Claudication. 8. Hypertension. 9. Hyperlipidemia. HOSPITAL COURSE: Ms. Humphrey presents with angina as well as claudication, underwent CASING WORKER stent of her left subclavian, right coronary artery, right SFA, had an uneventful postop course with no further symptomatology, discharged home, continue her medications as she is already on aspirin and Plavix. Will follow up with [facility] in 1 month. TRANSINT:[id number] Voice Confirmation ID: [id number] DOCUMENT ID: [id number] SID BOSWELL MD at 0847 CC: [id number] DICTATION DATE: 12/30/16 1025 FOUNDRY PROCESS ENGINEER: 12/31/16 0007 DIS IN 12/30/16 [place] [id number] [place] [address]
--- NOTE | 2017-01-01 08:47 | OP ---
PATIENT NAME: SANTHOSH NATARAJAN MEDICAL RECORD: [id number] :41 LOCATION:[facility] ADMISSION DATE:12/29/16 SURGEON: SID BOSWELL MD DATE OF OPERATION: 12/29/2016 PROCEDURES: 1. PTCA stent RCA. 2. Selective coronary angiography. 3. Bilateral selective renal angiography. 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 DESCRIPTION OF THE PROCEDURE: After informed consent was obtained and after a detailed explanation of the risks, benefits as well as alternative therapies, the patient elected to proceed with angiogram and angioplasty. The right femoral area was prepped and draped in normal sterile fashion. The right femoral artery was cannulated via modified Seldinger technique with placement of 6-Mozambican sheath. All catheters exchanged through this sheath. FINDINGS: There was subselection of each renal artery, right side. The right renal artery has mild narrowing, none greater than 30%, no flow-limiting stenosis. Left renal artery is 2 arteries off the aorta. There is a previously placed stent in the lower pole. This is widely patent with no significant restenosis. The upper pole artery has no significant stenosis. PERCUTANEOUS TRANSLUMINAL CORONARY ANGIOPLASTY STENT OF THE RIGHT CORONARY ARTERY: The RCA had a 90% stenosis distally, it was addressed with a 2.25 x 14 mm Resolute. Result was 0% residual stenosis. No angiographic evidence of dissection or thrombus with jainism of REBECA-3 flow. IMPRESSION: 1. Successful percutaneous transluminal coronary angioplasty stent of the right coronary artery going from 90% initial stenosis to 0% residual. 2. No significant renal artery stenosis is present. No significant restenosis of the previously placed renal stent. Center medical management on treatment of essential hypertension. TRANSINT:[id number] Voice Confirmation ID: [id number] DOCUMENT ID: [id number] SID BOSWELL MD at 0847 CC: [id number] DICTATION DATE: 12/29/16 1032 MILL OILER: 12/29/16 1901 DIS IN 12/30/16 [facility] [address] [place] [address]
--- NOTE | 2017-01-01 08:47 | OP ---
PATIENT NAME: SANTHOSH NATARAJAN MEDICAL RECORD: [id number] :41 LOCATION:[facility] D[facility]wal[facility]05 ADMISSION DATE:12/29/16 SURGEON: SID BOSWELL MD DATE OF OPERATION: 12/30/2016 PROCEDURES: 1. Stent placement to SFA, right. 2. FISHER SEAL SFA, right. 3. Unilateral extremity angiography. INDICATIONS: Claudication and peripheral vascular disease. PROCEDURE IN DETAIL: After informed consent was obtained and after a detailed explanation of risks, benefits as well as alternative therapies, the patient elected to proceed with angiogram and angioplasty. The left femoral area was prepped and draped in normal sterile fashion. Left femoral artery was cannulated via modified Seldinger technique with placement of a 6-German rpaktx-lov-ikst sheath. All catheters exchanged through this sheath. FINDINGS: There was a question of the left iliac needing intervention; however, angulated views of this revealed this is no greater than 30%-40%. We then turned our attention to the right SFA, there was 80+ percent stenosis addressed with a 6.0 balloon, yielding suboptimal result with severe intimal dissection. Stenting was undertaken with a 6 x 20 SMART stent. Result was 0% residual stenosis. OVERALL IMPRESSION: Successful FISHER SEAL stent of the right SFA going from 80+ percent initial stenosis to 0% residual. TRANSINT:[id number] Voice Confirmation ID: [id number] DOCUMENT ID: [id number] SID BOSWELL MD at 0847 CC: [id number] DICTATION DATE: 12/30/16 1024 ASP NET MVC DEVELOPER: 12/30/16 1459 DIS IN 12/30/16 [place] [address]
--- NOTE | 2017-01-01 08:47 | OP ---
PATIENT NAME: SANTHOSH NATARAJAN MEDICAL RECORD: [id number] :41 LOCATION:[facility] DhaliwalCV05 ADMISSION DATE:12/29/16 SURGEON: SID BOSWELL MD DATE OF OPERATION: 12/29/2016 PROCEDURES: 1. Stent placement, subclavian, left. 2. MUNICIPAL CLERK, subclavian, left. INDICATION: Subclavian disease, symptomatic, with left arm weakness, left arm pain. DESCRIPTION OF THE PROCEDURE: After informed consent was obtained and after detailed explanation of risks, benefits as well as alternative therapies, the patient elected to proceed with angiogram and angioplasty. Right femoral area had a preexisting 6-Nepalese sheath from coronary intervention. All catheters exchanged through this sheath. FINDINGS: The subclavian with 90% stenosis addressed with a 6.0 balloon, which yielded suboptimal result with severe intimal dissection. Stenting was undertaken with a 6 x 29 Cordis Karen stent. Result was 0% residual stenosis. OVERALL IMPRESSION: Successful percutaneous transluminal angioplasty stent of the left subclavian going from 90% initial stenosis to 0% residual. TRANSINT:[id number] Voice Confirmation ID: [id number] DOCUMENT ID: [id number] SID BOSWELL MD at 0847 CC: [id number] DICTATION DATE: 12/29/16 1033 TYPESETTER PERFORATOR OPERATOR: 12/29/162039 DIS IN 12/30/16 [place] [id number] [place] [address]
== END 2016-12-30 14:50 | disposition home or self-care (01) | DRG 247 ==
LOC: D.CVICU 07:25 → D.CATH 07:25 → D.CVICU 10:09 → D.CATH 12:22 → D.CVICU 15:16
PROVIDERS: ADMIT Internal Medicine Interventional Cardiology
PROC: 03743DZ Dilation of Left Subclavian Artery with Intraluminal Device, Percutaneous Approach (ICD-10-PCS; 2016-12-29)
PROC: 4A023N7 Measurement of Cardiac Sampling and Pressure, Left Heart, Percutaneous Approach (ICD-10-PCS; 2016-12-29)
PROC: B2111ZZ Fluoroscopy of Multiple Coronary Arteries using Low Osmolar Contrast (ICD-10-PCS; 2016-12-29)
PROC: B2151ZZ Fluoroscopy of Left Heart using Low Osmolar Contrast (ICD-10-PCS; 2016-12-29)
PROC: B4181ZZ Fluoroscopy of Bilateral Renal Arteries using Low Osmolar Contrast (ICD-10-PCS; 2016-12-29)
PROC: 027034Z Dilation of Coronary Artery, One Artery with Drug-eluting Intraluminal Device, Percutaneous Approach (ICD-10-PCS; principal; 2016-12-29 09:00)
PROC: 047K3DZ Dilation of Right Femoral Artery with Intraluminal Device, Percutaneous Approach (ICD-10-PCS; 2016-12-30)
DX: I25.119 Atherosclerotic heart disease of native coronary artery with unspecified angina pectoris (principal); I70.213 Atherosclerosis of native arteries of extremities with intermittent claudication, bilateral legs; I10 Essential (primary) hypertension; E78.5 Hyperlipidemia, unspecified; I77.9 Disorder of arteries and arterioles, unspecified

== ENCOUNTER → 2017-04-12 12:16 | Outpatient (CLI) | payer MEDICARE, OTHER ==
[2016-12-30 12:44] VITALS: BMI 19.6
[~2017-04-12 12:16] MED LIST changes: +SYNTHROID75 MCG PO; +VITAMIN D31000 UNIT PO
== END | disposition home or self-care (01) ==
LOC: D.CT 12:16
DX: M47.029 Vertebral artery compression syndromes, site unspecified (principal)

== ENCOUNTER → 2017-04-15 13:09 | Outpatient (CLI) | payer MEDICARE, OTHER ==
[2016-12-30 12:44] VITALS: BMI 19.6
[2017-04-15 14:10] LABS: CREATININE - SERUM 0.9 mg/dL (0.6-1.3)
== END | disposition home or self-care (01) ==
LOC: D.CT 13:09
PROVIDERS: Family Medicine
DX: M47.029 Vertebral artery compression syndromes, site unspecified (principal)

== ENCOUNTER → 2017-07-28 07:36 | Outpatient (CLI) | payer MEDICARE, OTHER ==
[2016-12-30 12:44] VITALS: BMI 19.6
== END | disposition home or self-care (01) ==
LOC: D.CT 07:36
DX: R05 Cough (principal)

== ENCOUNTER → 2017-10-13 09:45 | Outpatient (CLI) | payer MEDICARE, OTHER ==
[2016-12-30 12:44] VITALS: BMI 19.6
== END | disposition home or self-care (01) ==
LOC: D.CT 09:45
DX: C34.32 Malignant neoplasm of lower lobe, left bronchus or lung (principal)

== ENCOUNTER 2018-03-02 21:55 | Inpatient (IN) | payer MEDICARE ==
--- NOTE | ~2018-03-02 | EC ---
PATIENT:SANTHOSH VARGAS DATE OF SERVICE: 03/02/18 SEX: F MEDICAL RECORD: [id number] DATE OF : 41 LOCATION:D.[facility] AGE OF PATIENT: 72 ADMISSION DATE: 03/02/18 REFERRING PHYSICIAN: INTERPRETING PHYSICIAN: SID CHAUDHRY MD ECHOCARDIOGRAM REPORT ECHO CHARGES 4 ECHO COMPLETE Date: 03/04 CLINICAL DIAGNOSIS: AORTIC STENOSIS ECHOCARDIOGRAPHIC MEASUREMENTS (adult normal given) AC root (d.<3.7cm) 2.1 cm LV Septum d (<1.2 cm> 1.4 cm Valve Excursion 0.6 cm LV Septum (systole) 1.6 cm Left Atria (s.<4.0cm> 4.3 cm LVPW d(<1.2cm) 1.8 cm RV (d.<2.3cm) 5.0 cm LVPW (sytole) 2.1 cm LV diastole(<5.6CM) 4.5 cm MV E-F(>70mm/sec) cm LV systole 2.2 cm LVOT Diameter 1.2 cm MV exc.(>10mm) 1.2 cm Est.ejection fraction (50-75%) % DOPPLER: LVIT cm/sec A 114 cm/sec E 145 cm/sec LA cm/sec RVSP 30 mmHg LVOT 145 cm/sec AOP1/2T m/s Asc. Ao 347 cm/sec RVOT 82 cm/sec RA cm/sec PA 182 cm/sec AV Gradient Peak 48.30mmHg AV Mean 24.37mmHg AV Area 0.3 cm MV Gradient Peak 11.93mmHg MV Mean 5.39 mmHg MV Area cm COMMENTS: SHON TRACED A 0.4 CM2 Career Education Teacher: 2 OBDULIA LIVINGSTON Capacitor Repairer: 1 Dr. Chaudhry TAPE# PACS Pericardial Effusion N DATE OF SERVICE: PROCEDURE: Echocardiogram. FINDINGS: 1. Left ventricular chamber size is within normal limits. Left ventricular systolic function is normal. Overall ejection fraction estimated at 55% to 60%. 2. Left atrium is enlarged at 4.3 cm. Right atrium and right ventricle chamber sizes are moderately dilated. 3. Valvular structures: Aortic valve demonstrates severe calcific aortic ECHOCARDIOGRAM REPORT [id number] SANTHOSH VARGAS stenosis, valve area calculates to 0.3 cm where there is a gradient of 48 mm across the valve. The mitral valve demonstrates moderate to severe mitral stenosis. There is a gradient of 12 mm across this valve. The remaining valvular structures have normal structure and motion. 4. Doppler interrogation elsewise reveals mild mitral regurgitation, mild tricuspid regurgitation, no other valvular insufficiency or stenosis. Pulmonary systolic pressure is estimated 30 mmHg. 5. No evidence of pericardial effusion or left ventricular thrombus. TRANSINT:[id number] Voice Confirmation ID: [id number] DOCUMENT ID: [id number] SID CHAUDHRY MD at 1006 CC: [id number] DICTATION DATE: 03/07/18 1051 MARKETING ACCOUNT MANAGER: 03/07/18 1142 DIS IN 03/07/18 [facility] [address] [facility] [place] [address]
--- NOTE | ~2018-03-02 | DS ---
PATIENT:SANTHOSH VARGAS :41 MEDICAL RECORD: [id number] DISCHARGE SUMMARY ADMISSION DATE: 03/02/18 DISCHARGE DATE: DATE OF ADMISSION: 03/03/2018. DATE OF DISCHARGE: 03/04/2018. ADMISSION DIAGNOSES: Possible early pneumonia, chronic obstructive pulmonary disease exacerbation. DISCHARGE DIAGNOSES: Chronic obstructive pulmonary disease exacerbation, chronic hypoxemia. HOSPITAL COURSE: The patient was admitted through the Emergency Room with gradual progressive shortness of breath. Chest x-ray was clear. D-dimer mildly elevated. CTA chest, no evidence of pulmonary emboli. The patient has end-stage COPD, has had oxygen at home in the past, but refused to wear it, agrees with oxygen therapy at this time, caregiver who lives with her present, they are anxious to go home once home O2 is arranged. Discussed case with case management and they will arrange home O2 prior to discharge. The patient discharged home in significantly improved condition. Vital signs are stable. The patient remains afebrile, O2 sats 90% to 95% with supplemental oxygen at 4.5 liters. The patient will follow up on Wednesday with Dr. Bolivar. DISCHARGE MEDICATIONS: Per med rec. Again, the patient is adamant about going home. Declines any other addition to treatment or evaluation except for the supplemental oxygen. We will discuss further care plans on Wednesday with Dr. Bolivar. No other complaints at this time. See chart for further details. TRANSINT:[id number] Voice Confirmation ID: [id number] DOCUMENT ID: [id number] DOREEN CIFUENTES DO at 1819 CC: [id number] DICTATION DATE: 03/04/18826 CUTTER IN: 03/04/18 1210 ADM IN [facility] [address] [place] [id number]
[2018-03-02 23:43] LABS: HEMATOCRIT 41.5 % (36.0-48.0); HEMOGLOBIN 13.8 g/dL (12-16); LYMPHOCYTES 17.9 % (15-50); MCH 29.1 pg (26.0-34.0); MCHC 33.3 g/dL (31.0-37.0); MCV 87.4 fL (80.0-100.0); MEAN PLATELET VOLUME 11.3 fL (7.4-10.4); NEUTROPHILS 70.4 % (40-80); PLATELET COUNT 112 10x3/uL (130-400); RBC 4.75 10x6/uL (4.00-5.40); RDW 14.1 % (11.5-14.5); WBC 5.4 10x3/uL (4.8-10.8)
[2018-03-02 23:56] LABS: ALBUMIN 2.7 g/dL (3.4-5.0); ANION GAP 5.1 mmol/L (8-16); BILIRUBIN - TOTAL 0.5 mg/dL (0.2-1.3); CALCIUM 8.7 mg/dL (8.5-10.1); CARBON DIOXIDE 36.5 mmol/L (21.0-32.0); CREATININE - SERUM 1.1 mg/dL (0.6-1.3); PROTEIN - SERUM 6.1 g/dL (6.4-8.2)
[2018-03-02 23:59] LABS: POTASSIUM - SERUM 2.6 mmol/L (3.5-5.1)
[2018-03-03 14:00] VITALS: BMI 19.5
[2018-03-03 18:38] VITALS: BP 181/79; BMI 17.9
[2018-03-03 20:00] VITALS: BP 153/63
[2018-03-04] VITALS: BP 183/85
[2018-03-04 02:11] VITALS: BP 183/82
[2018-03-04 05:59] LABS: BASOPHILS 0 % (0-2); EOSINOPHILS 0 % (0-7); HEMATOCRIT 45.7 % (36.0-48.0); IMMATURE GRANULOCYTES 0.2 % (0-5); LYMPHOCYTES 5.7 % (15-50); MCH 29.2 pg (26.0-34.0); MCHC 32.8 g/dL (31.0-37.0); MCV 88.9 fL (80.0-100.0); MEAN PLATELET VOLUME 11.6 fL (7.4-10.4); MONOCYTES 1.7 % (2-11); NEUTROPHILS 92.4 % (40-80); PLATELET COUNT 106 10x3/uL (130-400); RBC 5.14 10x6/uL (4.00-5.40)
[2018-03-04 06:06] LABS: WBC 8.2 10x3/uL (4.8-10.8)
[2018-03-04 06:45] LABS: ALBUMIN 2.8 g/dL (3.4-5.0); ALKALINE PHOSPHATASE 76 U/L (46-116); ALT (SGPT) 16 U/L (10-68); BILIRUBIN - TOTAL 1.27 mg/dL (0.2-1.3); CALC OSMOLALITY 274 mosm/kg (275-300); CALCIUM 9.1 mg/dL (8.5-10.1); CHLORIDE - SERUM 99 mmol/L (98-107); GLUCOSE 129 mg/dL (74-106); PHOSPHOROUS 2.9 mg/dL (2.5-4.9); PRO BNP 21546 pg/mL (0-125); PROTEIN - SERUM 6.5 g/dL (6.4-8.2); SODIUM 137 mmol/L (136-145); UREA NITROGEN 9 mg/dL (7-18)
[2018-03-04 06:51] LABS: CREATININE - SERUM 0.7 mg/dL (0.6-1.3); MAGNESIUM - SERUM 1.1 mg/dL (1.8-2.4); POTASSIUM - SERUM 3.8 mmol/L (3.5-5.1); eGFR NON AFRICAN AMERICAN 87 mL/min (90-120)
[2018-03-04 07:56] VITALS: BP 167/86
[2018-03-04] MEDS ORDERED: LEVAQUIN500 MG PO (08:21)
[2018-03-04 12:11] VITALS: BP 157/62
[2018-03-04 15:55] VITALS: BP 119/59
[2018-03-04 20:00] VITALS: BP 145/58
[2018-03-05] VITALS: BP 159/68
[2018-03-05 04:00] VITALS: BP 173/82
[2018-03-05 05:41] LABS: ALBUMIN 2.5 g/dL (3.4-5.0); ALKALINE PHOSPHATASE 69 U/L (46-116); ALT (SGPT) 17 U/L (10-68); CALC OSMOLALITY 276 mosm/kg (275-300); CALCIUM 9.4 mg/dL (8.5-10.1); CARBON DIOXIDE 30.5 mmol/L (21.0-32.0); CHLORIDE - SERUM 101 mmol/L (98-107); CREATININE - SERUM 0.7 mg/dL (0.6-1.3); GLUCOSE 134 mg/dL (74-106); MAGNESIUM - SERUM 1.3 mg/dL (1.8-2.4); POTASSIUM - SERUM 3.7 mmol/L (3.5-5.1); PROTEIN - SERUM 5.8 g/dL (6.4-8.2); SODIUM 137 mmol/L (136-145); UREA NITROGEN 14 mg/dL (7-18); eGFR NON AFRICAN AMERICAN 87 mL/min (90-120)
[2018-03-05 08:23] VITALS: BP 183/70
[2018-03-05 12:33] VITALS: BP 156/72
[2018-03-05 16:19] VITALS: BP 147/56
[2018-03-05 22:58] VITALS: BP 129/71
[2018-03-06 05:32] VITALS: BP 162/70
[2018-03-06 06:15] LABS: BASOPHILS 0 % (0-2); EOSINOPHILS 0 % (0-7); HEMATOCRIT 43.9 % (36.0-48.0); HEMOGLOBIN 14.4 g/dL (12-16); IMMATURE GRANULOCYTES 0.3 % (0-5); LYMPHOCYTES 4.7 % (15-50); MCH 29.1 pg (26.0-34.0); MCHC 32.8 g/dL (31.0-37.0); MCV 88.7 fL (80.0-100.0); MEAN PLATELET VOLUME 11.8 fL (7.4-10.4); MONOCYTES 5.3 % (2-11); NEUTROPHILS 89.7 % (40-80); PLATELET COUNT 117 10x3/uL (130-400); RBC 4.95 10x6/uL (4.00-5.40); RDW 13.7 % (11.5-14.5); WBC 10.9 10x3/uL (4.8-10.8)
[2018-03-06 06:27] LABS: ANION GAP 7.2 mmol/L (8-16); CALCIUM 9.7 mg/dL (8.5-10.1); CARBON DIOXIDE 35.1 mmol/L (21.0-32.0); CREATININE - SERUM 0.8 mg/dL (0.6-1.3); MAGNESIUM - SERUM 1.6 mg/dL (1.8-2.4); POTASSIUM - SERUM 3.3 mmol/L (3.5-5.1)
[2018-03-06 08:36] VITALS: BP 162/70
[2018-03-06 12:04] VITALS: BP 151/61
[2018-03-06 16:14] VITALS: BP 138/78
[2018-03-06 21:56] VITALS: BP 152/78
[2018-03-07 02:38] VITALS: BP 178/61
[2018-03-07 04:47] LABS: BASOPHILS 0 % (0-2); EOSINOPHILS 0 % (0-7); HEMATOCRIT 45.4 % (36.0-48.0); HEMOGLOBIN 15.1 g/dL (12-16); IMMATURE GRANULOCYTES 0.2 % (0-5); LYMPHOCYTES 10.2 % (15-50); MCH 29.4 pg (26.0-34.0); MCHC 33.3 g/dL (31.0-37.0); MCV 88.3 fL (80.0-100.0); MEAN PLATELET VOLUME 11.4 fL (7.4-10.4); MONOCYTES 11.6 % (2-11); PLATELET COUNT 117 10x3/uL (130-400); RBC 5.14 10x6/uL (4.00-5.40); RDW 13.9 % (11.5-14.5); WBC 9.3 10x3/uL (4.8-10.8)
[2018-03-07 05:01] LABS: ANION GAP 7.7 mmol/L (8-16); CALCIUM 9.7 mg/dL (8.5-10.1); CARBON DIOXIDE 32.9 mmol/L (21.0-32.0); CREATININE - SERUM 0.8 mg/dL (0.6-1.3); POTASSIUM - SERUM 3.6 mmol/L (3.5-5.1)
[2018-03-07] MEDS ORDERED: STERAPRED DS 1010 MG PO (06:24)
[2018-03-07 09:41] VITALS: BP 125/45
== END 2018-03-07 14:08 | disposition home or self-care (01) | DRG 177 ==
LOC: D.ER 21:55 → D.EDHOLD 23:07 → D.MS 23:07
PROVIDERS: Family Medicine; Nurse Practitioner Family
DX: J69.0 Pneumonitis due to inhalation of food and vomit (principal); J96.01 Acute respiratory failure with hypoxia; J96.02 Acute respiratory failure with hypercapnia; I63.9 Cerebral infarction, unspecified; I50.23 Acute on chronic systolic (congestive) heart failure; J98.11 Atelectasis; R47.01 Aphasia; I11.0 Hypertensive heart disease with heart failure; J18.9 Pneumonia, unspecified organism; E87.6 Hypokalemia; R41.0 Disorientation, unspecified; I73.89 Other specified peripheral vascular diseases; E03.9 Hypothyroidism, unspecified; E55.9 Vitamin D deficiency, unspecified; E78.5 Hyperlipidemia, unspecified; F41.8 Other specified anxiety disorders; Z87.891 Personal history of nicotine dependence

== ENCOUNTER → 2018-07-19 08:24 | Outpatient (CLI) | payer MEDICARE, OTHER ==
[~2018-07-19 08:24] MED LIST changes: +LEVAQUIN500 MG PO; +STERAPRED DS 1010 MG PO
== END | disposition home or self-care (01) ==
LOC: D.CT 08:24
DX: C34.32 Malignant neoplasm of lower lobe, left bronchus or lung (principal)